=== PATIENT | female | born 1990 | race African-American/Black ===

== ENCOUNTER 2016-08-05 04:53 | Emergency (ER) | payer OTHER ==
[~2016-08-05] VITALS: Ht 172.7 cm; Wt 77.1 kg
[2016-08-05 04:58] VITALS: BP 124/88
[2016-08-05] MEDS ORDERED: CEPH500T PO (05:26)
--- NOTE | 2016-08-05 05:26 | PHYS DOC ---
Past Medical History Past Medical History: Seizure, Other Additional Past Medical Histor: PTSD Past Surgical History: Alcohol Use: Occasionally Drug Use: Marijuana, Other Social History Narrative: METH THIS TIME ONLY Adult General Chief Complaint Chief Complaint: UPPER EXTREMITY PAIN HPI HPI Patient is a 25 year old female who presents with wound to right arm. Patient reports on Friday she was with a friend and took a thumbtack, dipped it in methamphetamine, and poked it pain in her right AC. She presents now with a wound at the site, which she has been picking at. She reports pain at this site. She denies any fever. No other acute complaints. Review of Systems Review of Systems Constitutional: Denies fever or chills Respiratory: Denies cough or shortness of breath Cardiovascular: Denies chest pain GI: Denies abdominal pain, nausea, vomiting, or diarrhea Musculoskeletal: Wound to right arm. Neurologic: Denies headache, focal weakness or sensory changes Current Medications Current Medications Current Medications Medications (Trade) Dose Ordered Sig/Anne Start Time Stop Time Status Last Admin Dose Admin Cephalexin HCl (Keflex) 500 mg 1X ONCE 08/05/16 05:30 08/05/16 05:31 DC 08/05/16 05:32 500 MG Neomycin/ Polymyxin/ Bacitracin (Triple Antibiotic Ointment) 1 pkt 1X ONCE 08/05/16 05:30 08/05/16 05:31 DC 08/05/16 05:32 1 PKT Allergies Allergies Allergies Coded Allergies Type Severity Reaction Last Updated Verified No Known Drug Allergies 08/05/16 No Physical Exam Physical Exam Constitutional: Well developed, well nourished, no acute distress, non-toxic appearance HENT: Normocephalic, atraumatic, bilateral external ears normal Cardiovascular: Heart rate normal, regular rhythm, no murmur Lungs & Thorax: Bilateral breath sounds clear to auscultation Abdomen: Bowel sounds normal, soft, non-distended, no TTP Skin: Warm, dry, no erythema, no rash Extremities: 6mm hole at R AC with subcutaneous fat visible; minimal surrounding erythema, no warmth to touch; 2+ radial pulse, full motor function and sensation to light touch intact Neurologic: Alert and oriented X 3, no gross deficits noted Current Patient Data Vital Signs Vital Signs Date Time Temp Pulse Resp B/P Pulse Ox O2 Delivery O2 Flow Rate FiO2 08/05/16 04:58 98.2 88 18 100 Room Air 98.2 EKG EKG [] Radiology/Procedures Radiology/Procedures [] Course & Med Decision Making Course & Med Decision Making Pertinent Labs and Imaging studies reviewed. (See chart for details) Patient is 25-year-old female who presents with wound in right arm where she used to a tack to take meth. Does not appear grossly infected, however we will cover with antibiotics as patient is picking at wound and I'm concerned that it will become infected. Dose of Keflex ordered as well as Triple Antibiotic ointment. Instructed patient on care of the wound. Discharged with prescription for Keflex, instructions for follow-up, return precautions. Dragon Disclaimer Dragon Disclaimer This electronic medical record was generated, in whole or in part, using a voice recognition dictation system. Departure Departure Impression: Primary Impression: Open wound of right upper extremity Disposition: HOME, SELF-CARE Condition: STABLE Referrals: NO PCP (PCP) Patient Instructions: Methamphetamine Abuse, Complications, Open Wound, Forearm , [id number] Additional Instructions: Thank you for allowing us to provide care today in the Emergency Department. Take the provided medication as directed. Keep your wound clean and dry. Do not pick at it. You can apply antibiotic ointment to the area. Schedule a follow up appointment with your primary care doctor in the next several days to have your wound checked. Return promptly to the Emergency Department if you develop any new or concerning symptoms, such as fever. Scripts Cephalexin 500 Mg Tablet1 Tab PO QID #28 TAB Prov:MARGARET SHANNON MD 08/05/16 MARGARET SHANNON MD Aug 05, 2016 05:26
[2016-08-05] MEDS ORDERED: CEPHALEXIN 250 MG CAPSULE PO ONE (05:30)
[2016-08-05] MEDS ORDERED: NEOMY/BACITR/POLYMYXIN OINT PACKET. TP ONE (05:30)
== END 2016-08-05 05:45 | disposition home or self-care (01) ==
LOC: ER 04:53
DX: S41.101A Unspecified open wound of right upper arm, initial encounter (principal); F15.10 Other stimulant abuse, uncomplicated; F12.10 Cannabis abuse, uncomplicated; F43.10 Post-traumatic stress disorder, unspecified; W26.8XXA Contact with other sharp object(s), not elsewhere classified, initial encounter; Y93.89 Activity, other specified; Y92.89 Other specified places as the place of occurrence of the external cause; Y99.8 Other external cause status
CPT/HCPCS: 99283

== ENCOUNTER 2016-09-02 20:01 | Emergency (ER) | payer OTHER ==
[~2016-09-02] VITALS: Ht 172.7 cm; Wt 72.6 kg
[~2016-09-02 20:01] MED LIST: CEPH500T PO
[2016-09-02 20:44] VITALS: BP 106/69
--- NOTE | 2016-09-02 21:18 | PHYS DOC ---
Past Medical History Past Medical History: Seizure, Other Additional Past Medical Histor: PTSD Past Surgical History: Additional Information: 1/2 PACK/DAY Alcohol Use: Occasionally Additional Information: 1 "TALL BOY" DAILY Drug Use: Marijuana Adult General Chief Complaint Chief Complaint: RIB PAIN [facility] Patient is a 25 year old female presents emergency Department with complaint of atraumatic right sided chest wall pain that radiates to her right shoulder that began approximately 4 days ago. Patient states the pain is worse when she takes deep breaths and or rotates her trunk. She denies any fevers or chills. Patient was anxious seen at [facility] 2 days ago. She had an abdominal workup done including alcohol ultrasound that showed normal. She states that she did receive a gram of azithromycin today from her visit on Friday for positive chlamydia test. Patient states that she has been expression hot flashes but denies fevers. Patient states that in the past, she had a pocket of fluid drained off of the right long as she had subsequent antibiotic therapy. She states this was done at . She describes a PICC line in at the time. She denies any history of recurrent ear infections. Other than the azithromycin that she received here today, she denies antibiotic use, hospitalization or foreign travel within the past 90 days. Patient denies any history of coagulopathies, family history of coagulopathies. She denies any previous history of PEs or DVTs. Review of Systems Review of Systems Constitutional: Denies fever or chills [] Eyes: Denies change in visual acuity, redness, or eye pain [] HENT: Denies nasal congestion or sore throat [] Respiratory: Denies cough or shortness of breath [] Cardiovascular: No additional information not addressed in HPI [] GI: Denies abdominal pain, nausea, vomiting, bloody stools or diarrhea [] : Denies dysuria or hematuria [] Musculoskeletal: Denies back pain or joint pain [] Integument: Denies rash or skin lesions [] Neurologic: Denies headache, focal weakness or sensory changes [] Endocrine: Denies polyuria or polydipsia [] Allergies Allergies Allergies Coded Allergies Type Severity Reaction Last Updated Verified hydrocodone Adverse Reaction Mild Nausea 09/02/16 Yes Physical Exam Physical Exam Constitutional: Well developed, well nourished, no acute distress, non-toxic appearance. Patient is talking on her smartphone in the room. She is smiling. HENT: Normocephalic, atraumatic, bilateral external ears normal, oropharynx moist, no oral exudates, nose normal. Eyes: PERRLA, EOMI, conjunctiva normal, no discharge. [] Neck: Normal range of motion, no tenderness, supple, no stridor. Cardiovascular:Heart rate regular rhythm, no murmur Lungs & Thorax: There is no evidence of respiratory distress or respiratory fatigue. There is no posturing or sensory muscle use. Lungs are clear to auscultation bilaterally. Abdomen: Bowel sounds normal, soft, no tenderness, no masses, no pulsatile masses. [] Skin: Warm, dry, no erythema, no rash. [] Back: No tenderness, no CVA tenderness. [] Extremities: No tenderness, no cyanosis, no clubbing, ROM intact, no edema. [] Neurologic: Alert and oriented X 3, normal motor function, normal sensory function, no focal deficits noted. [] Psychologic: Affect normal, judgement normal, mood normal. [] Current Patient Data Vital Signs Vital Signs Date Time Temp Pulse Resp B/P Pulse Ox O2 Delivery O2 Flow Rate FiO2 09/02/16 20:44 98.7 87 18 100 Room Air 98.7 Lab Values Laboratory Tests Test 09/02/16 20:41 POC Urine HCG, Qualitative Hcg negative (Negative) EKG EKG [] Radiology/Procedures Radiology/Procedures PA and lateral chest x-ray are performed with adequate technique. It is normal. Course & Med Decision Making Course & Med Decision Making Pertinent Labs and Imaging studies reviewed. (See chart for details) [] Dragon Disclaimer Dragon Disclaimer This electronic medical record was generated, in whole or in part, using a voice recognition dictation system. Departure Departure Impression: Primary Impression: Pleurisy Disposition: HOME, SELF-CARE Condition: GOOD Referrals: NO PCP (PCP) Patient Instructions: Pleurisy, [id number] Additional Instructions: 1. Chest x-ray here today is normal. There is no evidence of pneumonia, collapsed lung or fluid in your chest. 2. Take the medications prescribed. 3. Review the discharge instructions provided for self-care and reasons to return to the emergency department. 4. Follow-up with a primary care doctor within the next 5-7 days. Scripts Promethazine Hcl/Codeine (Promethazine-Codeine Syrup)118 Ml Syrup10 Ml PO QHS cough and chest wall. #240 ML Prov:DAVY CUELLAR 09/02/16 DAVY CUELLAR Sep 02, 2016 21:18
[2016-09-02] MEDS ORDERED: PROM118S2 PO (21:50)
--- NOTE | 2016-09-03 08:04 | RAD ---
Chest, 2 views, 09/02/2016: History: Rib and right shoulder pain The heart size and pulmonary vascularity are normal. No pulmonary infiltrates are seen. There is no evidence of pleural fluid. IMPRESSION: No acute cardiopulmonary abnormality is detected.
== END 2016-09-02 22:02 | disposition home or self-care (01) ==
LOC: ER 20:01
DX: R09.1 Pleurisy (principal); M25.511 Pain in right shoulder; F12.10 Cannabis abuse, uncomplicated; F43.10 Post-traumatic stress disorder, unspecified; Z88.5 Allergy status to narcotic agent
CPT/HCPCS: 71020; 81025; 99284

== ENCOUNTER 2016-10-30 21:57 | Inpatient (IN) | payer OTHER ==
[~2016-10-30] VITALS: Ht 172.7 cm; Wt 70.3 kg
[~2016-10-30 21:57] MED LIST changes: +PROM118S2 PO
--- NOTE | 2016-10-30 22:09 | PHYS DOC ---
Past Medical History Past Medical History: Seizure, Other Additional Past Medical Histor: PTSD Past Surgical History: Smoking: Cigarettes Alcohol Use: Occasionally Drug Use: Marijuana Adult General Chief Complaint Chief Complaint: SEIZURE HPI HPI Patient is a 25 year old female who presents with recurrent seizures. She has been followed by [facility] for her seizures "that are due to my drinking and anxiety." She states she had a seizure last , Fri and Sat. She donated plasma today "so I had a few beers so that I could donate again faster." She last drank this evening. When EMS arrived she was having a generalized tonic clonic seizure. They dosed here with IM versed and she arrived alert and oriented with no seizure activity upon presentation. Her LMP is today; she has had some loose stool but otherwise no acute illness. Review of Systems Review of Systems Constitutional: Denies fever or chills Eyes: Denies change in visual acuity, redness, or eye pain HENT: Denies nasal congestion or sore throat Respiratory: Denies cough or shortness of breath Cardiovascular: No chest pain GI: Denies abdominal pain, nausea, vomiting, bloody stools. Some diarrhea : Denies dysuria or hematuria Musculoskeletal: Denies back pain or joint pain Integument: Denies rash or skin lesions Neurologic: Denies headache, focal weakness or sensory changes. Seizure activity Current Medications Current Medications Current Medications Medications (Trade) Dose Ordered Sig/Anne Start Time Stop Time Status Last Admin Dose Admin Acetaminophen (Tylenol) 650 mg PRN Q4HRS PRN 10/31/16 00:30 11/01/16 00:29 Lorazepam (Ativan) 2 mg PRN Q4HRS PRN 10/31/16 00:30 Multivitamins 10 ml/Thiamine HCl 100 mg/Folic Acid 1 mg/Sodium Chloride 1,011.2 ml @ 100 mls/ hr DAILY 10/31/16 01:00 11/05/16 00:59 10/31/16 00:39 100 MLS/HR Ondansetron HCl (Zofran) 4 mg PRN Q8HRS PRN 10/31/16 00:30 11/01/16 00:29 Sodium Chloride 1,000 ml @ 1,000 mls/hr 1X ONCE 10/30/16 23:00 10/30/16 23:59 DC 10/30/16 22:40 1,000 MLS/HR Sodium Chloride (Normal Saline Flush) 10 ml QSHIFT PRN 10/30/16 22:15 Allergies Allergies Allergies Coded Allergies Type Severity Reaction Last Updated Verified hydrocodone Adverse Reaction Mild Nausea 09/02/16 Yes Physical Exam Physical Exam Constitutional: Well developed, well nourished, no acute distress, non-toxic appearance. HENT: Normocephalic, atraumatic, bilateral external ears normal, oropharynx moist, no oral exudates, nose normal. Eyes: PERRLA, EOMI, conjunctiva normal, no discharge. Neck: Normal range of motion, no tenderness, supple, no stridor. Cardiovascular:Heart rate regular rhythm, no murmur Lungs & Thorax: Bilateral breath sounds clear to auscultation Abdomen: Bowel sounds normal, soft, no tenderness, no masses, no pulsatile masses. Skin: Warm, dry, no erythema, no rash. Back: No tenderness, no CVA tenderness. Extremities: No tenderness, no cyanosis, no clubbing, ROM intact, no edema. Neurologic: Alert and oriented X 3, normal motor function, normal sensory function, no focal deficits noted. Psychologic: Affect normal, judgement normal, mood normal. Current Patient Data Vital Signs Vital Signs Date Time Temp Pulse Resp B/P (MAP) Pulse Ox O2 Delivery O2 Flow Rate FiO2 10/31/16 00:52 72 18 92/58 (69) 100 Room Air 10/30/16 22:07 98.6 98.6 Lab Values Laboratory Tests Test 10/30/16 21:47 10/30/16 22:15 10/30/16 22:30 POC Urine HCG, Qualitative Hcg negative (Negative) White Blood Count 6.1 x10^3/uL (4.0-11.0) Red Blood Count 4.49 x10^6/uL (3.50-5.40) Hemoglobin 12.9 g/dL (12.0-15.5) Hematocrit 39.5 % (36.0-47.0) Mean Corpuscular Volume 88 fL (79-100) Mean Corpuscular Hemoglobin 29 pg (25-35) Mean Corpuscular Hemoglobin Concent 33 g/dL (31-37) Red Cell Distribution Width 16.4 % (11.5-14.5) H Platelet Count 223 x10^3/uL (140-400) Neutrophils (%) (Auto) 33 % (31-73) Lymphocytes (%) (Auto) 52 % (24-48) H Monocytes (%) (Auto) 7 % (0-9) Eosinophils (%) (Auto) 6 % (0-3) H Basophils (%) (Auto) 1 % (0-3) Neutrophils # (Auto) 2.0 x10^3uL (1.8-7.7) Lymphocytes # (Auto) 3.2 x10^3/uL (1.0-4.8) Monocytes # (Auto) 0.5 x10^3/uL (0.0-1.1) Eosinophils # (Auto) 0.3 x10^3/uL (0.0-0.7) Basophils # (Auto) 0.1 x10^3/uL (0.0-0.2) Sodium Level 142 mmol/L (136-145) Potassium Level 3.5 mmol/L (3.5-5.1) Chloride Level 107 mmol/L (98-107) Carbon Dioxide Level 23 mmol/L (21-32) Anion Gap 12 (6-14) Blood Urea Nitrogen 7 mg/dL (7-20) Creatinine 0.9 mg/dL (0.6-1.0) Estimated GFR (Cockcroft-Gault) 91.6 Glucose Level 69 mg/dL (70-99) L Calcium Level 8.5 mg/dL (8.5-10.1) Total Bilirubin 0.3 mg/dL (0.2-1.0) Direct Bilirubin 0.1 mg/dL (0.0-0.2) Aspartate Amino Transferase (AST) 34 U/L (15-37) Alanine Aminotransferase (ALT) 42 U/L (14-59) Alkaline Phosphatase 47 U/L (46-116) Total Protein 6.7 g/dL (6.4-8.2) Albumin 3.5 g/dL (3.4-5.0) Ethyl Alcohol Level 201 mg/dL (0-10) H Urine Opiates Screen Neg (NEG) Urine Methadone Screen Neg (NEG) Urine Barbiturates Neg (NEG) Urine Phencyclidine Screen Neg (NEG) Urine Amphetamine/Methamphetamine Neg (NEG) Urine Benzodiazepines Screen Pos (NEG) Urine Cocaine Screen Pos (NEG) Urine Cannabinoids Screen Pos (NEG) Urine Ethyl Alcohol Pos (NEG) Laboratory Tests 10/30/16 22:15 Laboratory Tests 10/30/16 22:15 EKG EKG EKG by my interpretation: NSR, rate 76. No acute ST elevation. Non specific ST changes Radiology/Procedures Radiology/Procedures CXR: my interpretation shows normal lung miner; normal cardiac silhouette. [facility] [address] [place] [address] IMAGING REPORT Signed PATIENT: JEFRY GORDON ACCOUNT: [id number] : 1990 LOCATION: ER AGE: 25 SEX: F EXAM STATUS: REG ER ORD. PHYSICIAN: ELISA FINE MD REASON: seizure PROCEDURE: CT HEAD WO CONTRAST CT head without contrast TECHNIQUE: [address] imaging skull base to vertex. HISTORY: Seizure. FINDINGS: No intracranial hemorrhage, mass, hydrocephalus, extra-axial fluid collections or infarction. No acute ischemic change. Orbits, mastoids, paranasal sinuses and bones are remarkable. IMPRESSION: No acute intracranial CT abnormality. Exposure: One or more of the following individualized dose reduction techniques were utilized for this examination: 1. Automated exposure control 2. Adjustment of the mA and/or kV according to patient size 3. Use of iterative reconstruction technique Electronically signed by: Adolph Henderson MD (10/30/2016 11:13 PM) DICTATED and SIGNED BY: ADOLPH HENDERSON MD DATE: 10/30/16 [id number] CC: ELISA FINE MD; NO PCP ~ Course & Med Decision Making Course & Med Decision Making Pertinent Labs and Imaging studies reviewed. (See chart for details) evaluated patient upon arrival. She is not on seizure medication per the patient. She claims it was never prescribed. She does drink heavily and is under the influence tonight. She is however alert and oriented and able to answer questions appropriately. 2225 PM: she had a seizure here. Ativan IV dosed. 2320 pm: Lab returned. Ethanol 201 and glucose 69. UCG negative. UDS pos for THC. CT head negative. No further seizure activity here. Contacted neurology-Dr Joe. Feels seizures are due to ethanol intox. presently. Will admit; alcohol detox protocol with ativan prn seizures. No keppra. Will admit to Dr Currie; hospitalist to [facility]. added thiamine and banana bag. ativan prn Maria Del Carmen Disclaimer Dragon Disclaimer This electronic medical record was generated, in whole or in part, using a voice recognition dictation system. Departure Departure Impression: Primary Impression: Recurrent seizures Additional Impression: Alcohol intoxication Disposition: ADMITTED INPATIENT Admitting Physician: Justice Currie Condition: STABLE Referrals: NO PCP (PCP) Problem Qualifiers ELISA FINE MD October 30, 2016 22:09
[2016-10-30] MEDS ORDERED: 0.9 % SODIUM CHLORIDE 10 ML DISP.SYRIN. IV PRN (22:15)
[2016-10-30 22:28] LABS: BASO # 0.1 x10^3/uL (0.0-0.2); BASO % 1 % (0-3); EOS % 6 % (0-3); HEMATOCRIT 39.5 % (36.0-47.0); HEMOGLOBIN 12.9 g/dL (12.0-15.5); LYMPH # 3.2 x10^3/uL (1.0-4.8); LYMPH % 52 % (24-48); MEAN CORPUSCULAR HEMOGLOBIN 29 pg (25-35); MEAN CORPUSCULAR HGB CONC 33 g/dL (31-37); MEAN CORPUSCULAR VOLUME 88 fL (79-100); MONO % 7 % (0-9); NEUT % 33 % (31-73); PLATELET COUNT 223 x10^3/uL (140-400); RED BLOOD COUNT 4.49 x10^6/uL (3.50-5.40); RED CELL DISTRIBUTION WIDTH 16.4 % (11.5-14.5); WHITE BLOOD COUNT 6.1 x10^3/uL (4.0-11.0)
[2016-10-30 22:40] LABS: CALCIUM 8.5 mg/dL (8.5-10.1); CREATININE 0.9 mg/dL (0.6-1.0); GFR 91.6; POTASSIUM 3.5 mmol/L (3.5-5.1)
[2016-10-30 22:43] LABS: ALBUMIN 3.5 g/dL (3.4-5.0); DIRECT BILIRUBIN 0.1 mg/dL (0.0-0.2); TOTAL BILIRUBIN 0.3 mg/dL (0.2-1.0); TOTAL PROTEIN 6.7 g/dL (6.4-8.2)
[2016-10-30 22:57] LABS: BARBITURATES NEG (NEG); BENZODIAZEPINES POS (NEG); CANNABINOIDS POS (NEG); COCAINE POS (NEG); METHADONE NEG (NEG); OPIATES NEG (NEG); PHENCYCLIDINE NEG (NEG)
[2016-10-30] MEDS ORDERED: IV NORMAL SALINE 1000ML BAG 1,000 ML IV ONE (23:00)
--- NOTE | 2016-10-30 23:16 | RAD ---
CT head without contrast TECHNIQUE: [address] imaging skull base to vertex. HISTORY: Seizure. FINDINGS: No intracranial hemorrhage, mass, hydrocephalus, extra-axial fluid collections or infarction. No acute ischemic change. Orbits, mastoids, paranasal sinuses and bones are remarkable. IMPRESSION: No acute intracranial CT abnormality. Exposure: One or more of the following individualized dose reduction techniques were utilized for this examination: 1. Automated exposure control 2. Adjustment of the mA and/or kV according to patient size 3. Use of iterative reconstruction technique Electronically signed by: Rizwan Henderson MD (10/30/2016 11:13 PM)
[2016-10-31] MEDS ORDERED: ACETAMINOPHEN 325 MG TABLET. PO PRN ×2 (00:30→11:30)
[2016-10-31] MEDS ORDERED: ONDANSETRON PF 4 MG/2 ML VIAL. IV PRN ×2 (00:30→11:30)
[2016-10-31] MEDS: MULTIVIT INFUSN,ADULT 4,VIT K 10 ML, THIAMINE 100 MG, FOLIC ACID 1 MG in IV NORMAL SALI... IV SCH (00:39)
[2016-10-31] MEDS: LORazepam 1 MG TABLET PO SCH ×4 (00:53→17:32)
[2016-10-31 02:48] VITALS: BP 96/63
[2016-10-31 07:00] VITALS: BP 114/77
--- NOTE | 2016-10-31 07:43 | EKG ---
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
[2016-10-31 11:00] VITALS: BP 120/74
[2016-10-31] MEDS ORDERED: MORPHINE SULFATE 2 MG/ML DISP.SYRIN. IV PRN (11:30)
[2016-10-31] MEDS ORDERED: DOCUSATE SODIUM 100 MG CAPSULE. PO PRN (11:30)
[2016-10-31] MEDS ORDERED: hydrALAZINE 20 MG/ML VIAL. IVP PRN (11:30)
[2016-10-31] MEDS ORDERED: traMADol 50 MG TABLET PO PRN (11:30)
[2016-10-31] MEDS ORDERED: guaiFENesin/CODEINE 100mg/10mg 5 ML LIQUID PO PRN (11:30)
--- NOTE | 2016-10-31 13:39 | PDOC1 ---
History and Physical Date of Admission Date of Admission 10/31/16 Identification/Chief Complaint Chief Complaint seizure Problems: Source Source: Chart review, Patient History of Present Illness History of Present Illness HPI Patient is a 25 year old female who presents with recurrent seizures for 2 days. She has been followed by [facility] for her seizures before, as per pt, they did 24h vedio EEG and neg for epilepsy. Pt thinks "that are due to my drinking and anxiety" since she thought she still had seizure when she was off ETOH for 1 year. However, she only saw psych once and was not following with anyone or takes any meds for psych or seizure. as per ERP, When EMS arrived she was having a generalized tonic clonic seizure. They dosed here with IM versed and she arrived alert and oriented with no seizure activity upon presentation. Her LMP is today; she has had some loose stool but otherwise no acute illness. as per nurse, pt had 4 times seizure today, with only 1min confusion post seizure. denies fever, chills, chest pain, N/V. + mild cough. smoker Past Medical History Past Medical History seizure Past Surgical History Past Surgical History: Family History Family History: Hypertension Social History Smoke: <1 pack per day ALCOHOL: heavy Drugs: Cocaine, Marijuana Current Problem List Problem List Problems Medical Problems: (1) Alcohol intoxication Status: Acute (2) Recurrent seizures Status: Acute Current Medications Current Medications Current Medications Medications (Trade) Dose Ordered Sig/Anne Start Time Stop Time Status Last Admin Dose Admin Acetaminophen (Tylenol) 650 mg PRN Q6HRS PRN 10/31/16 11:30 Docusate Sodium (Colace) 100 mg PRN DAILY PRN 10/31/16 11:30 Guaifenesin/ Codeine Phosphate (Robitussin Ac) 5 ml PRN Q6HRS PRN 10/31/16 11:30 Hydralazine HCl (Apresoline) 10 mg PRN Q4HRS PRN 10/31/16 11:30 Lorazepam (Ativan) 2 mg PRN Q4HRS PRN 10/31/16 00:30 10/31/16 10:11 2 MG Morphine Sulfate 2 mg PRN Q2HR PRN 10/31/16 11:30 Multivitamins 10 ml/Thiamine HCl 100 mg/Folic Acid 1 mg/Sodium Chloride 1,011.2 ml @ 100 mls/ hr DAILY 10/31/16 01:00 11/05/16 00:59 10/31/16 00:39 100 MLS/HR Ondansetron HCl (Zofran) 4 mg PRN Q6HRS PRN 10/31/16 11:30 Promethazine HCl/ Codeine (Phenergan With Codeine) 10 ml QHS 10/31/16 21:00 Sodium Chloride 1,000 ml @ 1,000 mls/hr 1X ONCE 10/30/16 23:00 10/30/16 23:59 DC 10/30/16 22:40 1,000 MLS/HR Sodium Chloride (Normal Saline Flush) 10 ml QSHIFT PRN 10/30/16 22:15 Thiamine HCl 100 mg DAILY 11/05/16 09:00 11/05/16 09:01 Tramadol HCl (Ultram) 50 mg PRN Q6HRS PRN 10/31/16 11:30 Allergies Allergies Allergies Coded Allergies Type Severity Reaction Last Updated Verified hydrocodone Adverse Reaction Mild Nausea 09/02/16 Yes ROS Review of System CONSTITUTIONAL: No fever or chills EYES: No recent changes SKIN: No rash or itching CARDIOVASCULAR: No chest pain, syncope, palpitations, or edema RESPIRATORY: No SOB or cough GASTROINTESTINAL: No nausea, vomiting or abdominal pain NEUROLOGICAL: No headaches or weakness ENDOCRINE: No cold or heat intolerance GENITOURINARY: No urgency or frequency of urination MUSCULOSKELETAL: No back pain or joint pain LYMPHATICS: No enlarged lymph nodes PSYCHIATRIC: No anxiety or depression Physical Exam Physical Exam GEN.: No apparent distress. Alert and oriented. HEENT: Head is normocephalic, atraumatic NECK: Supple. LUNGS: Clear to auscultation. HEART: RRR, S1, S2 present. Peripheral pulses intact ABDOMEN: Soft, nontender. Positive bowel sounds. EXTREMITIES: Without any cyanosis. NEUROLOGIC: Normal speech, normal tone PSYCHIATRIC: Normal affect, normal mood. SKIN: No ulcerations Vitals Vitals Vital Signs Date Time Temp Pulse Resp B/P (MAP) Pulse Ox O2 Delivery O2 Flow Rate FiO2 10/31/16 11:00 97.6 88 18 120/74 (89) 96 Room Air 97.6 Labs Labs Laboratory Tests Test 10/30/16 21:47 10/30/16 22:15 10/30/16 22:30 Bedside Urine HCG, Qualitative Hcg negative (Negative) White Blood Count 6.1 x10^3/uL (4.0-11.0) Red Blood Count 4.49 x10^6/uL (3.50-5.40) Hemoglobin 12.9 g/dL (12.0-15.5) Hematocrit 39.5 % (36.0-47.0) Mean Corpuscular Volume 88 fL (79-100) Mean Corpuscular Hemoglobin 29 pg (25-35) Mean Corpuscular Hemoglobin Concent 33 g/dL (31-37) Red Cell Distribution Width 16.4 % (11.5-14.5) Platelet Count 223 x10^3/uL (140-400) Neutrophils (%) (Auto) 33 % (31-73) Lymphocytes (%) (Auto) 52 % (24-48) Monocytes (%) (Auto) 7 % (0-9) Eosinophils (%) (Auto) 6 % (0-3) Basophils (%) (Auto) 1 % (0-3) Neutrophils # (Auto) 2.0 x10^3uL (1.8-7.7) Lymphocytes # (Auto) 3.2 x10^3/uL (1.0-4.8) Monocytes # (Auto) 0.5 x10^3/uL (0.0-1.1) Eosinophils # (Auto) 0.3 x10^3/uL (0.0-0.7) Basophils # (Auto) 0.1 x10^3/uL (0.0-0.2) Sodium Level 142 mmol/L (136-145) Potassium Level 3.5 mmol/L (3.5-5.1) Chloride Level 107 mmol/L (98-107) Carbon Dioxide Level 23 mmol/L (21-32) Anion Gap 12 (6-14) Blood Urea Nitrogen 7 mg/dL (7-20) Creatinine 0.9 mg/dL (0.6-1.0) Estimated GFR (Cockcroft-Gault) 91.6 Glucose Level 69 mg/dL (70-99) Calcium Level 8.5 mg/dL (8.5-10.1) Total Bilirubin 0.3 mg/dL (0.2-1.0) Direct Bilirubin 0.1 mg/dL (0.0-0.2) Aspartate Amino Transf (AST/SGOT) 34 U/L (15-37) Alanine Aminotransferase (ALT/SGPT) 42 U/L (14-59) Alkaline Phosphatase 47 U/L (46-116) Total Protein 6.7 g/dL (6.4-8.2) Albumin 3.5 g/dL (3.4-5.0) Ethyl Alcohol Level 201 mg/dL (0-10) Urine Opiates Screen Neg (NEG) Urine Methadone Screen Neg (NEG) Urine Barbiturates Neg (NEG) Urine Phencyclidine Screen Neg (NEG) Urine Amphetamine/Methamphetamine Neg (NEG) Urine Benzodiazepines Screen Pos (NEG) Urine Cocaine Screen Pos (NEG) Urine Cannabinoids Screen Pos (NEG) Urine Ethyl Alcohol Pos (NEG) Laboratory Tests Test 10/30/16 21:47 10/30/16 22:15 10/30/16 22:30 Bedside Urine HCG, Qualitative Hcg negative (Negative) White Blood Count 6.1 x10^3/uL (4.0-11.0) Red Blood Count 4.49 x10^6/uL (3.50-5.40) Hemoglobin 12.9 g/dL (12.0-15.5) Hematocrit 39.5 % (36.0-47.0) Mean Corpuscular Volume 88 fL (79-100) Mean Corpuscular Hemoglobin 29 pg (25-35) Mean Corpuscular Hemoglobin Concent 33 g/dL (31-37) Red Cell Distribution Width 16.4 % (11.5-14.5) Platelet Count 223 x10^3/uL (140-400) Neutrophils (%) (Auto) 33 % (31-73) Lymphocytes (%) (Auto) 52 % (24-48) Monocytes (%) (Auto) 7 % (0-9) Eosinophils (%) (Auto) 6 % (0-3) Basophils (%) (Auto) 1 % (0-3) Neutrophils # (Auto) 2.0 x10^3uL (1.8-7.7) Lymphocytes # (Auto) 3.2 x10^3/uL (1.0-4.8) Monocytes # (Auto) 0.5 x10^3/uL (0.0-1.1) Eosinophils # (Auto) 0.3 x10^3/uL (0.0-0.7) Basophils # (Auto) 0.1 x10^3/uL (0.0-0.2) Sodium Level 142 mmol/L (136-145) Potassium Level 3.5 mmol/L (3.5-5.1) Chloride Level 107 mmol/L (98-107) Carbon Dioxide Level 23 mmol/L (21-32) Anion Gap 12 (6-14) Blood Urea Nitrogen 7 mg/dL (7-20) Creatinine 0.9 mg/dL (0.6-1.0) Estimated GFR (Cockcroft-Gault) 91.6 Glucose Level 69 mg/dL (70-99) Calcium Level 8.5 mg/dL (8.5-10.1) Total Bilirubin 0.3 mg/dL (0.2-1.0) Direct Bilirubin 0.1 mg/dL (0.0-0.2) Aspartate Amino Transf (AST/SGOT) 34 U/L (15-37) Alanine Aminotransferase (ALT/SGPT) 42 U/L (14-59) Alkaline Phosphatase 47 U/L (46-116) Total Protein 6.7 g/dL (6.4-8.2) Albumin 3.5 g/dL (3.4-5.0) Ethyl Alcohol Level 201 mg/dL (0-10) Urine Opiates Screen Neg (NEG) Urine Methadone Screen Neg (NEG) Urine Barbiturates Neg (NEG) Urine Phencyclidine Screen Neg (NEG) Urine Amphetamine/Methamphetamine Neg (NEG) Urine Benzodiazepines Screen Pos (NEG) Urine Cocaine Screen Pos (NEG) Urine Cannabinoids Screen Pos (NEG) Urine Ethyl Alcohol Pos (NEG) VTE Prophylaxis Ordered VTE Prophylaxis Devices: Yes VTE Pharmacological Prophylaxi: Yes Assessment/Plan Assessment/Plan seizure, 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
--- NOTE | 2016-10-31 14:36 | PDOC2 ---
NEUROLOGY CONSULT Date of Admission Date of Admission DATE: 10/31/16 TIME: 13:52 Reason for Consult Reason for Consult: IMPRESSION: Seizures, substance and drug related. Acute toxic encephalopathy. Alcohol intoxication, alcohol level 201 on 10/30/16. Cocaine positive. Cannabinoids positive. Benzo positive. Drinking. Smoking. Plasma donating. RECOMMENDATIONS/PLAN: Alcohol IV detoxication protocol. Vit B1 100 mg daily. EEG Lab: see orders. No AED is recommended at the present time for alcohol and drug induced seizures. Patient education for substances and drugs abstinence. No driving for 6 months anytime after a seizure and she understood. Please consult Web Production Manager. See psychiatry for alcohol and drug abuse. HISTORY OF THE PRESENT ILLNESS: 25-y-old AA female was brought to the ER of [facility] after having seizures. She had seizures on 10/25, 10/26 and 10/27. She is a jeannette donating plasma and she had plasma donation on 10/30. After plasma donation, she drank 2 tall container of beer estimated 24 Oz and had 2 seizures afterwards. She had seizures in the past and was evaluated in [facility] and she said she was told her seizures were alcohol seizures and no AEDs were needed. She was found positivities for cocaine , cannabinoids, benzo alone with alcohol intoxication this time. PAST MEDICAL HISTORY: Please see above. PAST SURGERY HISTORY: . ALLERGY: Unknown MEDICATIONS: Refer to [facility] FAMILY HISTORY: No information is available. SOCIAL HISTORY: Lives at home with her children. She smokes 1/2 to 1 pack of cigarettes a day for 11 years. She drinks beers with uncertain amount multiple times a week for about 11 years. She uses drugs as above for years she did not disclose. REVIEW OF SYSTEMS: Constitutional: No malnutrition or cachexia. Head: No traumatic brain or head injury. Skin: No edema, or rash. Ear: No infection, tinnitus. Eyes: No vision loss or color blindness. Nose: No bleeding or purulent discharges. Hearing: No hearing decrease. Neck: No injury. Breast: No history of cancer, masses,or discharges. Cardiac: No IN, arrhythmia. Pulmonary: No pneumonia. GI: No GI ulcer, GI bleeding. Urinary/genital: No dysuria, incontinence, urinary retention. Endocrinologic: No cousin face, craniofacial dysmorphism, polydactyly. Skeletomuscular: No muscular atrophy, deformity. Neurological: see HP. Psychiatric: Denies drug use/abuse. Otherwise, not [id number] review of systems. PHYSICAL EXAMINATION: General appearance is in acute distress. HEENT: Normocephalic and nontraumatic. Eyes, nose, ears, and throat are unremarkable. Neck is supple. No lymphadenopathy. No bruits are heard over the carotid artery. No crepitus. Cardiovascular: S1, S2, regular rate and rhythm. Pulmonary: Clear to auscultation bilaterally. Abdomen: Bowel sounds are positive. Extremities: No rash, lesions, or edema. No restriction of range of motion NEUROLOGICAL EXAMINATION: Sleepiness but arousable. Not oriented to time, but knows place and person. PERRL. EOMI. CN: no focal findings. Muscle tone: within normal. Muscle strength: 5 DTR: 2 Plantar reflex: Flexor response bilaterally Gait: not examined in bed. Sensory exam: no abnormal findings. Not able to access cerebellar signs due to not follow commands. Current Medications Current Medications Current Medications Sodium Chloride (Normal Saline Flush) 10 ml QSHIFT PRN IV AFTER MEDS AND BLOOD DRAWS; Start 10/30/16 at 22:15 Lorazepam (Ativan) 2 mg STK-MED ONCE .ROUTE ; Start 10/30/16 at 22:24; Stop at 22:25; Status DC Lorazepam (Ativan) 1 mg 1X ONCE IV Last administered on 10/30/16 22:28; Start 10/30/16 at 23:00; Stop 10/30/16 at 23:01; Status DC Sodium Chloride 1,000 ml @ 1,000 mls/hr 1X ONCE IV Last administered on 22:40; Start 10/30/16 at 23:00; Stop 10/30/16 at 23:59; Status DC Ondansetron HCl (Zofran) 4 mg PRN Q8HRS PRN IV NAUSEA/VOMITING; Start 10/31/16 at 00:30; Stop 11/01/16 at 00:29 Acetaminophen (Tylenol) 650 mg PRN Q4HRS PRN PO FEVER; Start 10/31/16 at 00:30 ; Stop 11/01/16 at 00:29 Multivitamins 10 ml/Thiamine HCl 100 mg/Folic Acid 1 mg/Sodium Chloride 1,011.2 ml @ 100 mls/ hr DAILY IV Last administered on 10/31/16 00:39; Start at 01:00; Stop 11/05/16 at 00:59 Thiamine HCl 100 mg DAILY IM ; Start 11/05/16 at 09:00; Stop 11/05/16 at 09:01 Lorazepam (Ativan) 2 mg Q6HRS PO Last administered on 10/31/16 06:32; Start at 00:30; Stop 11/01/16 at 06:01 Lorazepam (Ativan) 2 mg PRN Q4HRS PRN IV WITHDRAWAL IRRITABILITY Last administered on 10/31/16 10:11; Start 10/31/16 at 00:30 Acetaminophen (Tylenol) 650 mg PRN Q6HRS PRN PO FEVER; Start 10/31/16 at 11:30 Ondansetron HCl (Zofran) 4 mg PRN Q6HRS PRN IV NAUSEA/VOMITING; Start 10/31/16 at 11:30 Morphine Sulfate 2 mg PRN Q2HR PRN IV PAIN; Start 10/31/16 at 11:30 Tramadol HCl (Ultram) 50 mg PRN Q6HRS PRN PO PAIN; Start 10/31/16 at 11:30 Hydralazine HCl (Apresoline) 10 mg PRN Q4HRS PRN IVP ELEVATED BP, SEE COMMENTS ; Start 10/31/16 at 11:30 Docusate Sodium (Colace) 100 mg PRN DAILY PRN PO CONSTIPATION; Start 10/31/16 at 11:30 Guaifenesin/ Codeine Phosphate (Robitussin Ac) 5 ml PRN Q6HRS PRN PO COUGH; Start 10/31/16 at 11:30 Promethazine HCl/ Codeine (Phenergan With Codeine) 10 ml QHS PO ; Start at 21:00 Enoxaparin Sodium (Lovenox 40mg Syringe) 40 mg DAILY16 SQ ; Start 10/31/16 at 16 :00 Active Scripts Active Promethazine-Codeine Syrup (Promethazine Hcl/Codeine) 118 Ml Syrup 10 Ml PO QHS Cephalexin 500 Mg Tablet 1 Tab PO QID Allergies Allergies: Coded Allergies: hydrocodone (Verified Adverse Reaction, Mild, Nausea, 09/02/16) Vitals VITALS Vital Signs Date Time Temp Pulse Resp B/P (MAP) Pulse Ox O2 Delivery O2 Flow Rate FiO2 10/31/16 11:00 97.6 88 18 120/74 (89) 96 Room Air 97.6 Labs Labs Laboratory Tests Test 10/30/16 21:47 10/30/16 22:15 10/30/16 22:30 Bedside Urine HCG, Qualitative Hcg negative (Negative) White Blood Count 6.1 x10^3/uL (4.0-11.0) Red Blood Count 4.49 x10^6/uL (3.50-5.40) Hemoglobin 12.9 g/dL (12.0-15.5) Hematocrit 39.5 % (36.0-47.0) Mean Corpuscular Volume 88 fL (79-100) Mean Corpuscular Hemoglobin 29 pg (25-35) Mean Corpuscular Hemoglobin Concent 33 g/dL (31-37) Red Cell Distribution Width 16.4 % (11.5-14.5) Platelet Count 223 x10^3/uL (140-400) Neutrophils (%) (Auto) 33 % (31-73) Lymphocytes (%) (Auto) 52 % (24-48) Monocytes (%) (Auto) 7 % (0-9) Eosinophils (%) (Auto) 6 % (0-3) Basophils (%) (Auto) 1 % (0-3) Neutrophils # (Auto) 2.0 x10^3uL (1.8-7.7) Lymphocytes # (Auto) 3.2 x10^3/uL (1.0-4.8) Monocytes # (Auto) 0.5 x10^3/uL (0.0-1.1) Eosinophils # (Auto) 0.3 x10^3/uL (0.0-0.7) Basophils # (Auto) 0.1 x10^3/uL (0.0-0.2) Sodium Level 142 mmol/L (136-145) Potassium Level 3.5 mmol/L (3.5-5.1) Chloride Level 107 mmol/L (98-107) Carbon Dioxide Level 23 mmol/L (21-32) Anion Gap 12 (6-14) Blood Urea Nitrogen 7 mg/dL (7-20) Creatinine 0.9 mg/dL (0.6-1.0) Estimated GFR (Cockcroft-Gault) 91.6 Glucose Level 69 mg/dL (70-99) Calcium Level 8.5 mg/dL (8.5-10.1) Total Bilirubin 0.3 mg/dL (0.2-1.0) Direct Bilirubin 0.1 mg/dL (0.0-0.2) Aspartate Amino Transf (AST/SGOT) 34 U/L (15-37) Alanine Aminotransferase (ALT/SGPT) 42 U/L (14-59) Alkaline Phosphatase 47 U/L (46-116) Total Protein 6.7 g/dL (6.4-8.2) Albumin 3.5 g/dL (3.4-5.0) Ethyl Alcohol Level 201 mg/dL (0-10) Urine Opiates Screen Neg (NEG) Urine Methadone Screen Neg (NEG) Urine Barbiturates Neg (NEG) Urine Phencyclidine Screen Neg (NEG) Urine Amphetamine/Methamphetamine Neg (NEG) Urine Benzodiazepines Screen Pos (NEG) Urine Cocaine Screen Pos (NEG) Urine Cannabinoids Screen Pos (NEG) Urine Ethyl Alcohol Pos (NEG) Laboratory Tests Test 10/30/16 21:47 10/30/16 22:15 10/30/16 22:30 Bedside Urine HCG, Qualitative Hcg negative (Negative) White Blood Count 6.1 x10^3/uL (4.0-11.0) Red Blood Count 4.49 x10^6/uL (3.50-5.40) Hemoglobin 12.9 g/dL (12.0-15.5) Hematocrit 39.5 % (36.0-47.0) Mean Corpuscular Volume 88 fL (79-100) Mean Corpuscular Hemoglobin 29 pg (25-35) Mean Corpuscular Hemoglobin Concent 33 g/dL (31-37) Red Cell Distribution Width 16.4 % (11.5-14.5) Platelet Count 223 x10^3/uL (140-400) Neutrophils (%) (Auto) 33 % (31-73) Lymphocytes (%) (Auto) 52 % (24-48) Monocytes (%) (Auto) 7 % (0-9) Eosinophils (%) (Auto) 6 % (0-3) Basophils (%) (Auto) 1 % (0-3) Neutrophils # (Auto) 2.0 x10^3uL (1.8-7.7) Lymphocytes # (Auto) 3.2 x10^3/uL (1.0-4.8) Monocytes # (Auto) 0.5 x10^3/uL (0.0-1.1) Eosinophils # (Auto) 0.3 x10^3/uL (0.0-0.7) Basophils # (Auto) 0.1 x10^3/uL (0.0-0.2) Sodium Level 142 mmol/L (136-145) Potassium Level 3.5 mmol/L (3.5-5.1) Chloride Level 107 mmol/L (98-107) Carbon Dioxide Level 23 mmol/L (21-32) Anion Gap 12 (6-14) Blood Urea Nitrogen 7 mg/dL (7-20) Creatinine 0.9 mg/dL (0.6-1.0) Estimated GFR (Cockcroft-Gault) 91.6 Glucose Level 69 mg/dL (70-99) Calcium Level 8.5 mg/dL (8.5-10.1) Total Bilirubin 0.3 mg/dL (0.2-1.0) Direct Bilirubin 0.1 mg/dL (0.0-0.2) Aspartate Amino Transf (AST/SGOT) 34 U/L (15-37) Alanine Aminotransferase (ALT/SGPT) 42 U/L (14-59) Alkaline Phosphatase 47 U/L (46-116) Total Protein 6.7 g/dL (6.4-8.2) Albumin 3.5 g/dL (3.4-5.0) Ethyl Alcohol Level 201 mg/dL (0-10) Urine Opiates Screen Neg (NEG) Urine Methadone Screen Neg (NEG) Urine Barbiturates Neg (NEG) Urine Phencyclidine Screen Neg (NEG) Urine Amphetamine/Methamphetamine Neg (NEG) Urine Benzodiazepines Screen Pos (NEG) Urine Cocaine Screen Pos (NEG) Urine Cannabinoids Screen Pos (NEG) Urine Ethyl Alcohol Pos (NEG) JAYE HOLT MD October 31, 2016 14:36
[2016-10-31 15:00] VITALS: BP 116/70
[2016-10-31] MEDS ORDERED: ENOXAPARIN 40 MG/0.4 ML SYRINGE. SQ SCH (16:00)
[2016-10-31 19:00] VITALS: BP 118/73
[2016-10-31] MEDS ORDERED: NICOTINE 21MG PATCH. TD PRN (20:30)
[2016-10-31] MEDS ORDERED: PROMETH/CODEINE 6.25/10MG 5 ML SYRUP. PO SCH (21:00)
--- NOTE | 2016-10-31 22:37 | EEG ---
DATE OF SERVICE: 10/31/2016 EEG NUMBER: [id number]. OBJECTIVE: This is a 25-year-old female patient with a history of seizures from time to time, alcohol intoxication, positive test of cocaine, marijuana and . EEG was requested to evaluate the seizure activity. METHODS: Twenty electrodes were applied according to the international 10-20 electrode placement system. EKG monitoring, hyperventilation, intermittent photic stimulation, monopolar and bipolar montages are routinely utilized. The record was obtained on a digital system with video monitoring. MEDICATIONS: No anti-seizure medication. FINDINGS: 1. Background: The patient was recorded in the awake, drowsy, and sleep states. The overall background amplitude is 10-30 microvolts. A posterior dominant rhythm of 8-9 Hz is observed with superimposed fast activity in beta frequencies. 2. Abnormalities: No specific epileptiform discharge or electrographic seizure is seen. No focal or diffuse slowing. 3. Activation: Hyperventilation was performed with fair efforts and normal response. Intermittent photic stimulation was performed with photic driving. No specific epileptiform discharge or electrographic seizure induced by hyperventilation or intermittent photic stimulation. IMPRESSION: This EEG is within the broad normal limits of the study for the awake, drowsy, and sleep states. No focal, lateralizing, specific epileptiform discharge or electrographic seizure is seen. The fast activity in beta frequency may be effect of . JAYE HOLT MD DR: ASIM/della JOB#: [id number] / [id number]
[2016-10-31 23:00] VITALS: BP 111/85
[2016-11-01] MEDS: LORazepam 1 MG TABLET PO SCH ×2 (00:03→06:22)
[2016-11-01 02:18] LABS: HEP A IGM ABDY Negative (Negative)
[2016-11-01 07:00] VITALS: BP 118/79
[2016-11-01] MEDS: MULTIVIT INFUSN,ADULT 4,VIT K 10 ML, THIAMINE 100 MG, FOLIC ACID 1 MG in IV NORMAL SALI... IV SCH ×2 (08:44→09:00)
[2016-11-01] MEDS ORDERED: FOLI1TAB16 PO (10:30)
[2016-11-01] MEDS ORDERED: THIA100T22 PO (10:31)
--- NOTE | 2016-11-01 11:25 | ACF ---
Admission Forms Criteria SEIZURE Clinical Indications for Admission to Inpatient Care (Place 'X' for any and all applicable criteria): Admission is indicated for seizure and ANY ONE of the following(1)(2)(3)(4)(5): [X]I. Inpatient admission required rather than observation care (Also use Seizure: Observation Care Criteria as appropriate) because of ANY ONE of the following: [ ]a) Altered mental status that is severe or persistent [ ]b) New focal neurologic deficit that is severe or persistent [ ]c) Metabolic disorder (eg, hypoglycemia, hyponatremia) that is severe or persistent [X]d) Recurrent seizure [ ]e) Outpatient antiseizure regimen cannot be established (eg , patient cannot tolerate medication, initiation requires inpatient care) [ ]f) Need for ongoing intravenous infusion of antiseizure medication [ ]g) Cardiac arrhythmias of immediate concern [ ]h) Cerebral bleeding, hydrocephalus, or vasospasm monitoring (14) [ ]i) Increased intracranial pressure or cerebral edema monitoring (15) [ ]j) Other treatment or monitoring requiring inpatient admission [ ]II. Status epilepticus [A] or repetitive seizures not controlled with emergent treatment (6)(8) [ ]III. Brain disorder (eg, tumor, edema, and hydrocephalus) that requiring monitoring or intervention available only at inpatient level of care. [ ]IV. Brain insult (eg, severe trauma, stroke, drug toxicity, or withdrawal) that requires monitoring or intervention available only at inpatient level of care (10)(11) Extended stay beyond goal length of stay may be needed for (22) [ ]a) Complications of status epilepticus [ ]b) Refractory status epilepticus [ ]c) Etiology-specific therapy for conditions such as HYPERION ANALYST infection, head injury,eclampsia, severe metabolic abnormalities, and brain tumor [ ]d) Residual neurologic damage, [ ]e) Initiation of significant change to anticonvulsant treatment [ ]f) Older patients (65 years or older) [ ]g) Patient requiring intubation (eg, to protect airway) The original [employer] content created by [employer] has been revised. The portions of the content which have been revised are identified through the use of italic text or in bold, and [facility] [employer] has neither reviewed nor approved the modified material. All other unmodified content is copyright [facility] [employer]. Please see references footnoted in the original [facility] edition 2016 Admission Criteria Met?: Yes MCKAY BRUNNER November 01, 2016 11:25
--- NOTE | 2016-11-01 12:27 | PDOC3 ---
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 She has been followed by MED for her seizures before, as per pt, they did 24h vedio EEG and neg for epilepsy. Pt thinks "that are due to my drinking and anxiety" since she thought she still had seizure when she was off ETOH for 1 year. However, she only saw psych once and was not following with anyone or takes any meds for psych or seizure. as per ERP, When EMS arrived she was having a generalized tonic clonic seizure. They dosed here with IM versed and she arrived alert and oriented with no seizure activity upon presentation. Her LMP is today; she has had some loose stool but otherwise no acute illness. as per nurse, pt had 4 times seizure today, with only 1min confusion post seizure. denies fever, chills, chest pain, N/V. + mild cough. smoker EEG neg. pt has no seizure for 24h. The seizure could be alcohol intoxication/ withdrawl, plus multi drugs use, and pseudoseizures with psych issues. recommend PAT to talk to her and fu with psych clinic as outpt. However, pt refused to talk to PAT team. this pt should not be admitted next time since she refused recommendation here. dc time 40min. GEN.: No apparent distress. Alert and oriented. HEENT: Head is normocephalic, atraumatic NECK: Supple. LUNGS: Clear to auscultation. HEART: RRR, S1, S2 present. Peripheral pulses intact ABDOMEN: Soft, nontender. Positive bowel sounds. EXTREMITIES: Without any cyanosis. NEUROLOGIC: Normal speech, normal tone PSYCHIATRIC: Normal affect, normal mood. SKIN: No ulcerations Patient History: FH: diabetes mellitus Problems: Disposition home CONDITION AT DISCHARGE: Improved Diet regular Scheduled Folic Acid (Folic Acid), 1 MG PO DAILY Promethazine Hcl/Codeine (Promethazine-Codeine Syrup), 10 ML PO QHS Thiamine Mononitrate (Vitamin B-1), 100 MG PO DAILY Discontinued Medications Cephalexin (Cephalexin), 1 TAB PO QID Follow Up psych kassandra, however, pt refused YENNI FERRARI MD November 01, 2016 12:27
--- NOTE | 2016-11-01 15:55 | PDOC ---
PROGRESS NOTES Assessment Assessment Seizures, substance and drug related. Acute toxic encephalopathy, resolved. Alcohol intoxication, alcohol level 201 on 10/30/16. Cocaine positive. Cannabinoids positive. Benzo positive. Drinking. Smoking. Plasma donating. RECOMMENDATIONS/PLAN: Alcohol detoxication protocol. Vit B1 100 mg daily. No AED is recommended at the present time for alcohol and drug induced seizure. Patient education for substances and drugs abstinence. No driving for 6 months anytime after a seizure and she understood. Please consult General Office Assistant. FU with PCP. See Psychiatry for alcohol and drug use/abuse. EEG on 10/31/16: Normal. No epileptiform activity. HISTORY OF THE PRESENT ILLNESS: 25-y-old AA female was brought to the ER of [facility] after having seizures. She had seizures on 10/25, 10/26 and 10/27. She is a jeannette donating plasma and she had plasma donation on 10/30. After plasma donation, she drank 2 tall container of beer estimated 24 Oz and had 2 seizures afterwards. She had seizures in the past and was evaluated in [facility] and she said she was told her seizures were alcohol seizures and no AEDs were needed. She was found positivities for cocaine , cannabinoids, benzo alone with alcohol intoxication this time. PAST MEDICAL HISTORY: Please see above. PAST SURGERY HISTORY: . ALLERGY: Unknown MEDICATIONS: Refer to [facility] FAMILY HISTORY: No information is available. SOCIAL HISTORY: Lives at home with her children. She smokes 1/2 to 1 pack of cigarettes a day for 11 years. She drinks beers with uncertain amount multiple times a week for about 11 years. She uses drugs as above for years she did not disclose. REVIEW OF SYSTEMS: Constitutional: No malnutrition or cachexia. Head: No traumatic brain or head injury. Skin: No edema, or rash. Ear: No infection, tinnitus. Eyes: No vision loss or color blindness. Nose: No bleeding or purulent discharges. Hearing: No hearing decrease. Neck: No injury. Breast: No history of cancer, masses,or discharges. Cardiac: No [place], arrhythmia. Pulmonary: No pneumonia. GI: No GI ulcer, GI bleeding. Urinary/genital: No dysuria, incontinence, urinary retention. Endocrinologic: No cousin face, craniofacial dysmorphism, polydactyly. Skeletomuscular: No muscular atrophy, deformity. Neurological: see HP. Psychiatric: Denies drug use/abuse. Otherwise, not [id number] review of systems. PHYSICAL EXAMINATION: General appearance is in no acute distress. HEENT: Normocephalic and nontraumatic. Eyes, nose, ears, and throat are unremarkable. Neck is supple. No lymphadenopathy. No bruits are heard over the carotid artery. No crepitus. Cardiovascular: S1, S2, regular rate and rhythm. Pulmonary: Clear to auscultation bilaterally. Abdomen: Bowel sounds are positive. Extremities: No rash, lesions, or edema. No restriction of range of motion NEUROLOGICAL EXAMINATION: Awake. Oriented to time, place and person. PERRL. EOMI. CN: no focal findings. Muscle tone: within normal. Muscle strength: 5 DTR: 2 Plantar reflex: Not examed. Gait: at her baseline normal. Sensory exam: no abnormal findings. No cerebellar signs elicited. Objective Objective Vital Signs Date Time Temp Pulse Resp B/P (MAP) Pulse Ox O2 Delivery O2 Flow Rate FiO2 11/01/16 07:00 97.8 79 18 118/79 (92) 100 Room Air 97.8 Intake and Output 11/01/16 07:00 Intake Total 1200 ml Output Total 1600 ml Balance -400 ml Intake Oral 1200 ml Output Urine Total 1600 ml # Voids 3 Vitals Signs Vitals VS - Last 72 Hours, by Label Date Time Temp Pulse Resp B/P (MAP) Pulse Ox O2 Delivery O2 Flow Rate FiO2 11/01/16 07:00 97.8 79 18 118/79 (92) 100 Room Air 97.8 10/31/16 23:00 98.7 61 17 111/85 (94) 100 Room Air 98.7 10/31/16 20:00 Room Air 10/31/16 19:00 99.0 75 20 118/73 (88) 99 Room Air 99.0 10/31/16 15:00 98.0 74 20 116/70 (85) 98 Room Air 98.0 10/31/16 11:00 97.6 88 18 120/74 (89) 96 Room Air 97.6 10/31/16 07:00 98.0 78 22 114/77 (89) 99 Room Air 98.0 Medication Medications Current Medications Enoxaparin Sodium (Lovenox 40mg Syringe) 40 mg DAILY16 SQ Last administered on 10/31/16t 17:33; Start 10/31/16 at 16:00; Stop 11/01/16 at 13:41; Status DC Folic Acid (Folic Acid) 1 mg DAILY PO ; Start 11/02/16 at 09:00; Stop 11/02/16 at 09:00; Status DC Nicotine (Nicoderm Cq 21mg) 1 patch PRN DAILY PRN TD SMOKING CESSATION Last administered on 10/31/16 20:45; Start 10/31/16 at 20:30; Stop 11/01/16 at 13:41 ; Status DC Promethazine HCl/ Codeine (Phenergan With Codeine) 10 ml QHS PO Last administered on 10/31/16 19:43; Start 10/31/16 at 21:00; Stop 11/01/16 at 13:41 ; Status DC Thiamine Mononitrate (Vitamin B-1) 100 mg DAILY PO ; Start 11/02/16 at 09:00; Stop 11/02/16 at 09:00; Status DC Thiamine HCl 100 mg DAILY IM ; Start 11/05/16 at 09:00; Stop 11/05/16 at 09:01; Status Cancel Comment Review of Relevant I have reviewed the following items rachel (where applicable) has been applied. JAYE HOLT MD November 01, 2016 15:55
[2016-11-02] MEDS ORDERED: FOLIC ACID 1 MG TABLET. PO SCH (09:00)
[2016-11-02] MEDS ORDERED: THIAMINE 100 MG TABLET. PO SCH (09:00)
[2016-11-05] MEDS ORDERED: THIAMINE IM 200 MG/2 ML VIAL. IM SCH (09:00)
== END 2016-11-01 12:00 | disposition home or self-care (01) | DRG 896 ==
LOC: ER 21:57 → 5 SOUTH 10-31 01:03 → OBSVTOIN 10-31 01:07
PROVIDERS: ADMIT Internal Medicine; ATTEND Internal Medicine
DX: F10.239 Alcohol dependence with withdrawal, unspecified (principal); G92 Toxic encephalopathy; F10.129 Alcohol abuse with intoxication, unspecified; G40.409 Other generalized epilepsy and epileptic syndromes, not intractable, without status epilepticus; J20.8 Acute bronchitis due to other specified organisms; Y90.7 Blood alcohol level of 200-239 mg/100 ml; B34.9 Viral infection, unspecified; E11.9 Type 2 diabetes mellitus without complications; F14.10 Cocaine abuse, uncomplicated; F17.210 Nicotine dependence, cigarettes, uncomplicated; F43.10 Post-traumatic stress disorder, unspecified; Z82.49 Family history of ischemic heart disease and other diseases of the circulatory system; Z88.8 Allergy status to other drugs, medicaments and biological substances
CPT/HCPCS: 36415; 70450; 80048; 80074; 80076; 81025; 85027; 86703; 86706; 93005; 95816; 99406; G0379; G0480; G0481; J1650; J2060; J7030

== ENCOUNTER 2017-02-07 16:41 | Emergency (ER) | payer OTHER ==
[~2017-02-07] VITALS: Ht 172.7 cm; Wt 68.9 kg
[~2017-02-07 16:41] MED LIST changes: +FOLI1TAB16 PO; +THIA100T22 PO
[2017-02-07] MEDS ORDERED: IV NORMAL SALINE 1000ML BAG 1,000 ML IV ONE (17:00)
--- NOTE | 2017-02-07 17:09 | PHYS DOC ---
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 Patient states she just completed donating plasma when seizure-activity began. Patient was conversant by EMS but was not postictal by report. She denies hitting her head, headache, neck pain, neck stiffness. She denies change in vision, difficulty swallowing, extremity weakness or loss of sensation. Patient denies diagnosis of epilepsy. She is not in any medications and has not seen a provider for more than a year. She has diagnoses of anxiety and asthma. Last menstrual period was 3 weeks ago. Patient does not believe she is . No other acute symptoms or complaints at this time. Patient smokes cigarettes, marijuana and drinks occasional alcohol. Denies additional illicit drug use or prescription medication abuse. Review of Systems Review of Systems Review symptoms as per history of present illness. All other review symptoms are negative. Current Medications Current Medications Current Medications Medications (Trade) Dose Ordered Sig/Anne Start Time Stop Time Status Last Admin Dose Admin Potassium Chloride/Sodium Chloride 500 ml @ 125 mls/hr 1X ONCE 02/07/17 18:00 02/07/17 21:59 Cancel Sodium Chloride 1,000 ml @ 1,000 mls/hr 1X ONCE 02/07/17 17:00 02/07/17 17:59 DC 02/07/17 17:21 1,000 MLS/HR Allergies Allergies Allergies Coded Allergies Type Severity Reaction Last Updated Verified No Known Medication Allergies Allergy Unknown 11/01/16 Yes hydrocodone Adverse Reaction Mild Nausea 09/02/16 Yes Physical Exam Physical Exam Constitutional: Well developed, well nourished, no acute distress, non-toxic appearance. [] HENT: Normocephalic, atraumatic, bilateral external ears normal, oropharynx moist, no orolingual injuries or abrasions or lacerations, no oral exudates, nose normal. [] Eyes: PERRLA, EOMI, conjunctiva normal, no discharge. [] Neck: Normal range of motion, no tenderness, supple, no stridor. [] Cardiovascular:Heart rate regular rhythm, no murmur [] Lungs & Thorax: Bilateral breath sounds clear to auscultation [] Abdomen: Bowel sounds normal, soft, no tenderness, no masses, no pulsatile masses. [] Skin: Warm, dry, no erythema, no rash. [] Back: No tenderness, no CVA tenderness. [] Extremities: No tenderness, no cyanosis, no clubbing, ROM intact, no edema. [] Neurologic: Alert and oriented X 3, cranial nerves II through XII grossly intact , normal motor function, normal sensory function, no focal deficits noted. [] Psychologic: Affect, flat. [] Current Patient Data Vital Signs Vital Signs Date Time Temp Pulse Resp B/P (MAP) Pulse Ox O2 Delivery O2 Flow Rate FiO2 02/07/17 18:20 85 20 124/74 (91) 100 Room Air 02/07/17 16:41 98.8 98.8 Lab Values Laboratory Tests Test 02/07/17 17:13 02/07/17 18:15 White Blood Count 4.9 x10^3/uL (4.0-11.0) Red Blood Count 4.80 x10^6/uL (3.50-5.40) Hemoglobin 13.5 g/dL (12.0-15.5) Hematocrit 41.5 % (36.0-47.0) Mean Corpuscular Volume 87 fL (79-100) Mean Corpuscular Hemoglobin 28 pg (25-35) Mean Corpuscular Hemoglobin Concent 33 g/dL (31-37) Red Cell Distribution Width 15.9 % (11.5-14.5) H Platelet Count 196 x10^3/uL (140-400) Neutrophils (%) (Auto) 41 % (31-73) Lymphocytes (%) (Auto) 43 % (24-48) Monocytes (%) (Auto) 11 % (0-9) H Eosinophils (%) (Auto) 4 % (0-3) H Basophils (%) (Auto) 1 % (0-3) Neutrophils # (Auto) 2.0 x10^3uL (1.8-7.7) Lymphocytes # (Auto) 2.1 x10^3/uL (1.0-4.8) Monocytes # (Auto) 0.6 x10^3/uL (0.0-1.1) Eosinophils # (Auto) 0.2 x10^3/uL (0.0-0.7) Basophils # (Auto) 0.0 x10^3/uL (0.0-0.2) Sodium Level 139 mmol/L (136-145) Potassium Level 3.7 mmol/L (3.5-5.1) Chloride Level 105 mmol/L (98-107) Carbon Dioxide Level 25 mmol/L (21-32) Anion Gap 9 (6-14) Blood Urea Nitrogen 8 mg/dL (7-20) Creatinine 0.8 mg/dL (0.6-1.0) Estimated GFR (Cockcroft-Gault) 104.1 BUN/Creatinine Ratio 10 (6-20) Glucose Level 87 mg/dL (70-99) Calcium Level 8.7 mg/dL (8.5-10.1) Total Bilirubin 0.3 mg/dL (0.2-1.0) Aspartate Amino Transferase (AST) 27 U/L (15-37) Alanine Aminotransferase (ALT) 32 U/L (14-59) Alkaline Phosphatase 57 U/L (46-116) Total Protein 7.0 g/dL (6.4-8.2) Albumin 3.5 g/dL (3.4-5.0) Albumin/Globulin Ratio 1.0 (1.0-1.7) Ethyl Alcohol Level < 10 mg/dL (0-10) Urine Collection Type Unknown Urine Color Yellow Urine Clarity Clear Urine pH 6.0 Urine Specific [place] 1.020 Urine Protein Negative mg/dL (NEG-TRACE) Urine Glucose (UA) Negative mg/dL (NEG) Urine Ketones (Stick) Negative mg/dL (NEG) Urine Blood Negative (NEG) Urine Nitrite Negative (NEG) Urine Bilirubin Negative (NEG) Urine Urobilinogen Dipstick 1.0 mg/dL (0.2 mg/dL) Urine Leukocyte Esterase Trace (NEG) Urine RBC Occ /HPF (0-2) Urine WBC 1-4 /HPF (0-4) Urine Squamous Epithelial Cells Few /LPF Urine Bacteria Few /HPF (0-FEW) Urine Mucus Slight /LPF Urine Opiates Screen Neg (NEG) Urine Methadone Screen Neg (NEG) Urine Barbiturates Neg (NEG) Urine Phencyclidine Screen Neg (NEG) Urine Amphetamine/Methamphetamine Neg (NEG) Urine Benzodiazepines Screen Pos (NEG) Urine Cocaine Screen Pos (NEG) Urine Cannabinoids Screen Pos (NEG) Urine Ethyl Alcohol Pos (NEG) Laboratory Tests 02/07/17 17:13 Laboratory Tests 02/07/17 17:13 EKG EKG EKG : Sinus rhythm, rate 86, no acute ST-T wave changes, QTC 412.[] Radiology/Procedures Radiology/Procedures [] Course & Med Decision Making Course & Med Decision Making Pertinent Labs and Imaging studies reviewed. (See chart for details) [Patient with seizure-like activity resolved prior to ED arrival. Patient with normal neurologic exam on my evaluation. EKG, labs are normal with exception of UDS positive for cocaine and THC. Benzodiazepines were given by the EMS and alcohol was not detectable. Upon discussing symptoms and results with the patient, he became verbally hostile and states that she did not smoke cocaine and that she does not know how cocaine got into her system. She then started that I did nothing for her to determine why she had seizures. When I explained to her that I did not know whether she had seizures and that cocaine can cause seizures, the patient then became more verbally loud and aggressive. The patient 's cousin walked into the room without knocked or being unannounced. She may have overhead part of the conversation that was in place. Patient then accused me of violating HIPPA and stated that she would jemima me. I explained to the patient I did not directly share any information with the patient's visitor and that any information she may have heard was unintentional. The patient was encouraged to follow-up with her PCP for further evaluation and diagnosis and to clear her system of all drugs. The patient left prior to discharge instructions.] Dragon Disclaimer Dragon Disclaimer This electronic medical record was generated, in whole or in part, using a voice recognition dictation system. Departure Departure Impression: Primary Impression: Seizure-like activity Additional Impression: Substance abuse Disposition: 01 HOME, SELF-CARE Condition: STABLE Referrals: NO PCP (PCP) Patient Instructions: Nonepileptic Seizures, Seizure Disorder, Child, Generalized Tonic-Clonic, Substance Abuse-Brief Problem Qualifiers TAN OLIVAS DO Feb 07, 2017 17:09
[2017-02-07 17:25] LABS: BASO % 1 % (0-3); EOS % 4 % (0-3); HEMATOCRIT 41.5 % (36.0-47.0); HEMOGLOBIN 13.5 g/dL (12.0-15.5); LYMPH # 2.1 x10^3/uL (1.0-4.8); LYMPH % 43 % (24-48); MEAN CORPUSCULAR HEMOGLOBIN 28 pg (25-35); MEAN CORPUSCULAR HGB CONC 33 g/dL (31-37); MEAN CORPUSCULAR VOLUME 87 fL (79-100); MONO % 11 % (0-9); NEUT % 41 % (31-73); PLATELET COUNT 196 x10^3/uL (140-400); RED CELL DISTRIBUTION WIDTH 15.9 % (11.5-14.5); WHITE BLOOD COUNT 4.9 x10^3/uL (4.0-11.0)
[2017-02-07 17:52] LABS: CALCIUM 8.7 mg/dL (8.5-10.1); CREATININE 0.8 mg/dL (0.6-1.0); GFR 104.1; POTASSIUM 3.7 mmol/L (3.5-5.1)
[2017-02-07 17:56] LABS: ALBUMIN 3.5 g/dL (3.4-5.0); TOTAL BILIRUBIN 0.3 mg/dL (0.2-1.0)
[2017-02-07] MEDS ORDERED: POTASSIUM CL 40MEQ IN 0.9%NACL 500 ML IV ONE (18:00)
[2017-02-07 18:44] LABS: BILIRUBIN,URINE NEGATIVE (NEG); GLUCOSE,URINE NEGATIVE (NEG); NITRITE,URINE NEGATIVE (NEG); PROTEIN,URINE NEGATIVE (NEG-TRACE)
[2017-02-07 18:50] VITALS: BP 118/80
[2017-02-07 18:52] LABS: BARBITURATES NEG (NEG); BENZODIAZEPINES POS (NEG); CANNABINOIDS POS (NEG); COCAINE POS (NEG); METHADONE NEG (NEG); OPIATES NEG (NEG); PHENCYCLIDINE NEG (NEG)
[2017-02-07 19:01] LABS: BACTERIA,URINE FEW /HPF (0-FEW); RBC,URINE OCC /HPF (0-2); SQUAMOUS EPITHELIAL CELL,UR FEW /LPF
[2017-02-07 19:14] LABS: NEG OBC SER NEG; POS OBC SER POS
--- NOTE | 2017-02-08 09:04 | EKG ---
[facility] [address] [place] [address] Test Date: 2017-02-07 Test Time: 17:22:38 Pat Name: JEFRY GORDON Department: Room: Gender: F [employer]: : 1990 Requested By: TAN OLIVAS Order Number: [id number] Reading MD: Shaun Blakely Measurements Intervals Moore Rate: 86 P: 66 MD: 124 QRS: 63 QRSD: 76 T: 46 QT: 342 QTc: 412 Interpretive Statements SINUS RHYTHM Electronically Signed On 02-11-2017 9:53:37 CDT by Shaun Blakely
== END 2017-02-07 19:05 | disposition home or self-care (01) ==
LOC: ER 16:41
DX: G40.89 Other seizures (principal); F19.10 Other psychoactive substance abuse, uncomplicated; J45.909 Unspecified asthma, uncomplicated; F43.10 Post-traumatic stress disorder, unspecified; F12.10 Cannabis abuse, uncomplicated; Z88.5 Allergy status to narcotic agent
CPT/HCPCS: 36415; 80053; 80307; 81001; 84703; 85025; 87086; 93005; 96360; 99285; G0480; J7030; G0479

== ENCOUNTER 2018-09-14 18:12 | Emergency (ER) | payer OTHER ==
[~2018-09-14] VITALS: Ht 170.2 cm; Wt 68.0 kg
[~2018-09-14 18:12] MED LIST changes: -PROM118S2 PO; +PROM118S5 PO
[2018-09-14 18:45] LABS: BILIRUBIN,URINE NEGATIVE (NEG); COLOR,URINE YELLOW; NITRITE,URINE NEGATIVE (NEG); PROTEIN,URINE NEGATIVE (NEG-TRACE); UROBILINOGEN,URINE 0.2 mg/dL (0.2 mg/dL)
[2018-09-14 18:54] LABS: CLARITY,URINE CLEAR
[2018-09-14 18:57] LABS: BACTERIA,URINE 0 /HPF (0-FEW); RBC,URINE RARE /HPF (0-2); SQUAMOUS EPITHELIAL CELL,UR FEW /LPF; WBC,URINE 0 /HPF (0-4)
[2018-09-14] MEDS ORDERED: DICYCLOMINE HCL 10 MG CAPSULE PO ONE (19:00)
[2018-09-14] MEDS ORDERED: IV NORMAL SALINE 1000ML BAG 1,000 ML IV ONE (19:00)
[2018-09-14] MEDS ORDERED: metroNIDAZOLE 500 MG TABLET PO ONE (19:00)
[2018-09-14] MEDS ORDERED: AZITHROMYCIN 250 MG TABLET. PO ONE (19:00)
[2018-09-14] MEDS ORDERED: ONDANSETRON PF 4 MG/2 ML VIAL. IV ONE (19:00)
[2018-09-14] MEDS ORDERED: cefTRIAXone IV Push 1 GM VIAL. IVP ONE (19:00)
[2018-09-14 19:33] LABS: BASO # 0.1 x10^3/uL (0.0-0.2); BASO % 1 % (0-3); EOS # 0.2 x10^3/uL (0.0-0.7); EOS % 5 % (0-3); HEMOGLOBIN 11.8 g/dL (12.0-15.5); LYMPH # 2.3 x10^3/uL (1.0-4.8); LYMPH % 51 % (24-48); MEAN CORPUSCULAR HEMOGLOBIN 29 pg (25-35); MEAN CORPUSCULAR HGB CONC 34 g/dL (31-37); MEAN CORPUSCULAR VOLUME 87 fL (79-100); MONO # 0.5 x10^3/uL (0.0-1.1); MONO % 10 % (0-9); NEUT # 1.5 x10^3uL (1.8-7.7); NEUT % 32 % (31-73); PLATELET COUNT 265 x10^3/uL (140-400); RED BLOOD COUNT 4.04 x10^6/uL (3.50-5.40); RED CELL DISTRIBUTION WIDTH 15.2 % (11.5-14.5); WHITE BLOOD COUNT 4.6 x10^3/uL (4.0-11.0)
[2018-09-14 19:46] LABS: CALCIUM 8.4 mg/dL (8.5-10.1); CREATININE 0.9 mg/dL (0.6-1.0); GFR 90.2; POTASSIUM 4.5 mmol/L (3.5-5.1)
[2018-09-14 19:51] LABS: ALBUMIN 3.5 g/dL (3.4-5.0); TOTAL BILIRUBIN 0.2 mg/dL (0.2-1.0); TOTAL PROTEIN 6.9 g/dL (6.4-8.2)
[2018-09-14] MEDS ORDERED: ONDA4TAB12 PO (20:31)
[2018-09-14] MEDS ORDERED: METR500T PO (20:31)
--- NOTE | 2018-09-14 20:31 | PHYS DOC ---
Past Medical History Past Medical History: Asthma, Seizure, Other Additional Past Medical Histor: PTSD Past Surgical History: Alcohol Use: Occasionally Drug Use: Marijuana Adult General Chief Complaint Chief Complaint: ABDOMINAL PAIN HPI HPI Patient is a 27 year old female with no significant medical history who presents today complaining of diarrhea, nausea, abdominal cramping, symptoms began this morning. Patient denies any fever. She is also concerned she could have STDs and like to be tested and treated. She is also concerned she left her tampon in her vagina last week. She states she had one in but she doesn't remember what happened to it. Review of Systems Review of Systems Constitutional: Denies fever or chills [] Eyes: Denies change in visual acuity, redness, or eye pain [] HENT: Denies nasal congestion or sore throat [] Respiratory: Denies cough or shortness of breath [] Cardiovascular: No additional information not addressed in HPI [] GI: Reports abdominal cramping, nausea, denies vomiting, reports diarrhea, concerned she could have a tampon left in her vagina, STD concerns. : Denies dysuria or hematuria [] Musculoskeletal: Denies back pain or joint pain [] Integument: Denies rash or skin lesions [] Neurologic: Denies headache, focal weakness or sensory changes [] All other systems were reviewed and found to be within normal limits, except as documented in this note. Current Medications Current Medications Current Medications Medications (Trade) Dose Ordered Sig/Anne Start Time Stop Time Status Last Admin Dose Admin Azithromycin (Zithromax) 1,000 mg 1X ONCE 09/14/18 19:00 09/14/18 19:09 DC 09/14/18 19:47 1,000 MG Ceftriaxone Sodium (Rocephin) 1 gm 1X ONCE 09/14/18 19:00 09/14/18 19:04 DC 09/14/18 19:47 1 GM Dicyclomine HCl (Bentyl) 20 mg 1X ONCE 09/14/18 19:00 09/14/18 19:08 DC 09/14/18 19:47 20 MG Metronidazole (Flagyl) 2,000 mg 1X ONCE 09/14/18 19:00 09/14/18 19:09 DC 09/14/18 19:47 2,000 MG Ondansetron HCl (Zofran) 4 mg 1X ONCE 09/14/18 19:00 09/14/18 19:03 DC 09/14/18 19:46 4 MG Sodium Chloride 1,000 ml @ 1,000 mls/hr 1X ONCE 09/14/18 19:00 09/14/18 19:59 DC 09/14/18 19:46 1,000 MLS/HR Allergies Allergies Allergies Coded Allergies Type Severity Reaction Last Updated Verified No Known Medication Allergies Allergy Unknown 09/14/18 Yes hydrocodone Adverse Reaction Intermediate Nausea 09/14/18 Yes Physical Exam Physical Exam Constitutional: Well developed, well nourished, no acute distress, non-toxic appearance. [] HENT: Normocephalic, atraumatic, bilateral external ears normal, oropharynx moist, no oral exudates, nose normal. [] Eyes: PERRLA, EOMI, conjunctiva normal, no discharge. [] Neck: Normal range of motion, no tenderness, supple, no stridor. [] Cardiovascular:Heart rate regular rhythm, no murmur [] Lungs & Thorax: Bilateral breath sounds clear to auscultation [] Abdomen: Bowel sounds normal, soft, no tenderness, no masses, no pulsatile masses. [] Vaginal exam External pelvic is normal, no foreign object noted in the vaginal vault, no CMT , no adnexal tenderness, small amount of white discharge in the vaginal vault. Skin: Warm, dry, no erythema, no rash. [] Back: No tenderness, no CVA tenderness. [] Extremities: No tenderness, no cyanosis, no clubbing, ROM intact, no edema. [] Neurologic: Alert and oriented X 3, normal motor function, normal sensory function, no focal deficits noted. [] Psychologic: Affect normal, judgement normal, mood normal. [] Current Patient Data Vital Signs Vital Signs Date Time Temp Pulse Resp B/P (MAP) Pulse Ox O2 Delivery O2 Flow Rate FiO2 09/14/18 18:38 98.5 87 18 134/78 (96) 100 Room Air 98.5 Lab Values Laboratory Tests Test 09/14/18 18:38 09/14/18 18:40 09/14/18 19:23 Urine Collection Type Unknown Urine Color Yellow Urine Clarity Clear Urine pH 7.0 Urine Specific [place] 1.015 Urine Protein Negative mg/dL (NEG-TRACE) Urine Glucose (UA) Negative mg/dL (NEG) Urine Ketones (Stick) Negative mg/dL (NEG) Urine Blood Negative (NEG) Urine Nitrite Negative (NEG) Urine Bilirubin Negative (NEG) Urine Urobilinogen Dipstick 0.2 mg/dL (0.2 mg/dL) Urine Leukocyte Esterase Negative (NEG) Urine RBC Rare /HPF (0-2) Urine WBC 0 /HPF (0-4) Urine Squamous Epithelial Cells Few /LPF Urine Bacteria 0 /HPF (0-FEW) POC Urine HCG, Qualitative Hcg negative (Negative) White Blood Count 4.6 x10^3/uL (4.0-11.0) Red Blood Count 4.04 x10^6/uL (3.50-5.40) Hemoglobin 11.8 g/dL (12.0-15.5) L Hematocrit 35.0 % (36.0-47.0) L Mean Corpuscular Volume 87 fL (79-100) Mean Corpuscular Hemoglobin 29 pg (25-35) Mean Corpuscular Hemoglobin Concent 34 g/dL (31-37) Red Cell Distribution Width 15.2 % (11.5-14.5) H Platelet Count 265 x10^3/uL (140-400) Neutrophils (%) (Auto) 32 % (31-73) Lymphocytes (%) (Auto) 51 % (24-48) H Monocytes (%) (Auto) 10 % (0-9) H Eosinophils (%) (Auto) 5 % (0-3) H Basophils (%) (Auto) 1 % (0-3) Neutrophils # (Auto) 1.5 x10^3uL (1.8-7.7) L Lymphocytes # (Auto) 2.3 x10^3/uL (1.0-4.8) Monocytes # (Auto) 0.5 x10^3/uL (0.0-1.1) Eosinophils # (Auto) 0.2 x10^3/uL (0.0-0.7) Basophils # (Auto) 0.1 x10^3/uL (0.0-0.2) Sodium Level 142 mmol/L (136-145) Potassium Level 4.5 mmol/L (3.5-5.1) Chloride Level 105 mmol/L (98-107) Carbon Dioxide Level 27 mmol/L (21-32) Anion Gap 10 (6-14) Blood Urea Nitrogen 13 mg/dL (7-20) Creatinine 0.9 mg/dL (0.6-1.0) Estimated GFR (Cockcroft-Gault) 90.2 BUN/Creatinine Ratio 14 (6-20) Glucose Level 90 mg/dL (70-99) Calcium Level 8.4 mg/dL (8.5-10.1) L Total Bilirubin 0.2 mg/dL (0.2-1.0) Aspartate Amino Transferase (AST) 26 U/L (15-37) Alanine Aminotransferase (ALT) 48 U/L (14-59) Alkaline Phosphatase 95 U/L (46-116) Total Protein 6.9 g/dL (6.4-8.2) Albumin 3.5 g/dL (3.4-5.0) Albumin/Globulin Ratio 1.0 (1.0-1.7) Lipase 150 U/L (73-393) Laboratory Tests 09/14/18 19:23 Laboratory Tests 09/14/18 19:23 Microbiology 09/14/18 Wet Prep - Final, Complete EKG EKG [] Radiology/Procedures Radiology/Procedures [] Course & Med Decision Making Course & Med Decision Making Pertinent Labs and Imaging studies reviewed. (See chart for details) This is a 27-year-old female patient presented to the ED today with nausea, diarrhea, abdominal cramping, symptoms began today. Also complaining of concern for STDs, patient was given prophylaxis treatment. Also concerned she could have a tampon in her vagina, none was found. Labs are negative. Urine analysis is negative for infection. Patient was discharged to home. Wet prep was noted for BV-discharge and Flagyl. Follow-up with PCP in 1-2 weeks. Discharged with Zofran as well as dicyclomine. Dragon Disclaimer Dragon Disclaimer This electronic medical record was generated, in whole or in part, using a voice recognition dictation system. Departure Departure Impression: Primary Impression: Bacterial vaginosis Additional Impressions: Concern about STD in female without diagnosis Diarrhea Nausea without vomiting Disposition: 01 HOME, SELF-CARE Condition: STABLE Referrals: NO PCP (PCP) follow up with your doctor in 1-2 weeks Patient Instructions: Bacterial Vaginosis, Diarrhea, Nausea and Vomiting, Easy- to-Read Additional Instructions: You were evaluated in the emergency room for abdominal pain, diarrhea, nausea, is likely a viral illness, it will run its own course. We treated you for sexually transmitted diseases. You also have bacterial vaginosis. Ensure you complete the prescribed antibiotics. Scripts Ondansetron (ONDANSETRON ODT) 4 Mg Tab.rapdis 1 TAB PO PRN Q6-8HRS, #16 TAB Prov: MIRZA MOORE APRN 09/14/18 Metronidazole (FLAGYL) 500 Mg Tablet 1 TAB PO BID, #10 TAB Prov: MIRZA MOORE APRN 09/14/18 Problem Qualifiers Additional Impressions: Diarrhea Diarrhea type: unspecified type Qualified Codes: R19.7 - Diarrhea, unspecified MIRZA MOORE APRN Sep 14, 2018 20:31
[2018-09-14 20:41] VITALS: BP 113/64
[2018-09-16 13:22] LABS: GC PROBE Negative (Negative)
== END 2018-09-14 20:42 | disposition home or self-care (01) ==
LOC: ER 18:12
DX: N76.0 Acute vaginitis (principal); B96.89 Other specified bacterial agents as the cause of diseases classified elsewhere; R11.0 Nausea; R19.7 Diarrhea, unspecified; Z20.2 Contact with and (suspected) exposure to infections with a predominantly sexual mode of transmission; J45.909 Unspecified asthma, uncomplicated; Z98.890 Other specified postprocedural states; Z88.5 Allergy status to narcotic agent
CPT/HCPCS: 36415; 80053; 81001; 81025; 83690; 85025; 87491; 87591; 96361; 96374; 96375; 99284; J0696; J2405; J7030; Q0111; Q0144

== ENCOUNTER 2019-11-15 17:04 | Observation (INO) | payer OTHER ==
[~2019-11-15] VITALS: Ht 172.7 cm; Wt 78.1 kg
[~2019-11-15 17:04] MED LIST changes: +METR500T PO; +ONDA4TAB12 PO
[2019-11-15] MEDS ORDERED: IV NORMAL SALINE 1000ML BAG 1,000 ML IV ONE ×2 (17:30→21:45)
--- NOTE | 2019-11-15 17:35 | PHYS DOC ---
Past Medical History Past Medical History: Asthma, Seizure, Other Additional Past Medical Histor: PTSD Past Surgical History: Smoking Status: Current Every Day Smoker Alcohol Use: Occasionally Drug Use: Marijuana General Adult EDM: Chief Complaint: SEIZURE HPI: HPI: Patient is a 29 year old female who presents with patient states she has seizures. She states that prior to this week she has been having the seizures a couple times a day and states they do not last long and her boyfriend or that is in the room with her states they do not last long she does not go unconscious. Patient is in the room alert and oriented answering all questions appropriately. Before checking in patient and boyfriend ate a pizza in the lobby but patient is complaining of nausea and vomiting and unable to keep anything down. Patient and her significant other states that all week she has been fighting off these "seizures "and and has been having them daily multiple times. Patient states she is a heavy drinker and at least 4 beers a day. Rosalinda puga also has a history of substance abuse. Patient was last seen in [address] Joe of at which time this seizure like activity was due to substance abuse and alcohol abuse. When patient is lying in bed in the room she will be completely still and then looks like she shivers and then stops and states " this is what my seizures look like". Patient denies falling and patient's boyfriend or significant other denies her falling or any injuries. She denies any pain. She states when she stands up she gets very dizzy. She states when she is sitting she is not dizzy. She states that she just feels lightheaded. He denies any pain, chest pain, shortness of air, fever, abdominal pain, diarrhea, vision changes, numbness or tingling, focal weakness. Review of Systems: Review of Systems: Neurologic: Denies headache, focal weakness or sensory changes. Seizure. [] Heart Score: Risk Factors: Risk Factors: DM, Current or recent (<one month) smoker, HTN, HLP, family history of CAD, obesity. Risk Scores: Score 0 - 3: 2.5% MACE over next 6 weeks - Discharge Home Score 4 - 6: 20.3% MACE over next 6 weeks - Admit for Clinical Observation Score 7 - 10: 72.7% MACE over next 6 weeks - Early Invasive Strategies Current Medications: Current Medications Medications (Trade) Dose Ordered Sig/Anne Start Time Stop Time Status Last Admin Dose Admin Sodium Chloride 1,000 ml @ 1,000 mls/hr 1X ONCE 11/15/19 17:30 11/15/19 18:29 Allergies: Allergies: Allergies Coded Allergies Type Severity Reaction Last Updated Verified hydrocodone Adverse Reaction Intermediate Nausea, vomiting, "passing out" 11/15/19 Yes Physical Exam: PE: Constitutional: Well developed, well nourished, no acute distress, non-toxic appearance. Unsteady when standing. [] HENT: Normocephalic, atraumatic, bilateral external ears normal, oropharynx moist, no oral exudates, nose normal. [] Eyes: PERRLA, EOMI, conjunctiva normal, no discharge. [] Neck: Normal range of motion, no tenderness, supple, no stridor. [] Cardiovascular:Heart rate regular rhythm, no murmur [] Lungs & Thorax: Bilateral breath sounds clear to auscultation [] Abdomen: Bowel sounds normal, soft, no tenderness, no masses, no pulsatile masses. [] Skin: Warm, dry, no erythema, no rash. [] Back: No tenderness, no CVA tenderness. [] Extremities: No tenderness, no cyanosis, no clubbing, ROM intact, no edema. [] Neurologic: Alert and oriented X 3, normal motor function, normal sensory function, no focal deficits noted. [] Psychologic: Affect normal, judgement normal, mood normal. [] EKG: EK and read by Dr. Richard as sinus tachycardia no STEMI Radiology/Procedures: Radiology/Procedures: [] Impression: [facility] [address] [place], [place] [id number] IMAGING REPORT Signed PATIENT: JEFRY GORDON ACCOUNT: [id number] : 1990 LOCATION: ER AGE: 29 SEX: F EXAM STATUS: REG ER ORD. PHYSICIAN: YOLANDA GOMEZ APRN REASON: seizure PROCEDURE: CT HEAD WO CONTRAST PQRS Compliance Statement: One or more of the following individualized dose reduction techniques were utilized for this examination: 1. Automated exposure control 2. Adjustment of the mA and/or kV according to patient size 3. Use of iterative reconstruction technique CT HEAD WITHOUT CONTRAST History: Reason: seizure / Spl. Instructions: / History: Comparison: CT head without contrast, October 30, 2016. Procedure: Axial images are obtained of the head from the skull base through the vertex without IV contrast. Findings: The ventricles and sulci are normal for the patient's age. No mass-effect, midline shift, hemorrhage, extra-axial fluid collection, or obvious acute infarction is identified. Basilar cisterns are patent. Bone windows demonstrate no acute calvarial abnormality. The visualized paranasal sinuses are clear. Mastoid air cells are well aerated. IMPRESSION: No acute intracranial abnormality. Electronically signed by: Gary Hodgson MD (11/15/2019 8:24 PM) [facility] DICTATED and SIGNED BY: GARY HODGSON MD DATE: 11/15/192023 Course & Med Decision Making: Course & Med Decision Making Pertinent Labs and Imaging studies reviewed. (See chart for details) Patient was able to change out of her close into a gown by herself. She was able to walk from the wheelchair to the bed. When she stands up she is slightly wobbly because of her dizziness. She moves all extremities normally. Follows all commands appropriately. Answers all questions appropriately. Alert and oriented. Speaks in full clear sentences. Patient has not bitten her tongue and has full range of motion of her neck and denies any pain or injuries. Abdomen is soft and nontender. PERRLA. Moves all extremities normally. Patient denies a headache. No nystagmus. Vital signs are within normal limits. Seizure precautions are placed. The Orthostatic is as following layin/74, 82 Sittin/52, 125 Standin/50, 98 Patient has had 1L NS and 1L Banana Bag. Patient is still dizzy upon standing. Patient is positive for PCP, methamphetamines and marijuana. I have spoken to Dr. Samaniego concerning this patient and admission. I will consult neurology. [] Maria Del Carmen Disclaimer: Maria Del Carmen Disclaimer: This electronic medical record was generated, in whole or in part, using a voice recognition dictation system. Departure Departure Impression: Primary Impression: Seizure-like activity Additional Impression: Orthostatic hypotension Disposition: ADMITTED INPATIENT Admitting Physician: BRUCE Condition: STABLE Referrals: NO PCP (PCP) Justicifation of Admission Dx: Justifications for Admission: Justification of Admission Dx: Yes Comments: Orthostatic Hypotension YOLANDA GOMEZ SQL [employer]ELOPER Nov 15, 2019 17:35
[2019-11-15] MEDS ORDERED: MULTIVIT INFUSN,ADULT 4,VIT K 10 ML, THIAMINE INJ 100 MG, FOLIC ACID INJ 1 MG in IV NOR... IV ONE (18:00)
[2019-11-15 18:13] LABS: BASO % 2 % (0-3); EOS # 0.1 x10^3/uL (0.0-0.7); EOS % 2 % (0-3); HEMATOCRIT 40.2 % (36.0-47.0); HEMOGLOBIN 13.6 g/dL (12.0-15.5); LYMPH # 1.7 x10^3/uL (1.0-4.8); LYMPH % 54 % (24-48); MEAN CORPUSCULAR HEMOGLOBIN 28 pg (25-35); MEAN CORPUSCULAR HGB CONC 34 g/dL (31-37); MEAN CORPUSCULAR VOLUME 84 fL (79-100); MONO # 0.4 x10^3/uL (0.0-1.1); MONO % 12 % (0-9); NEUT # 0.9 x10^3/uL (1.8-7.7); NEUT % 30 % (31-73); PLATELET COUNT 292 x10^3/uL (140-400); RED CELL DISTRIBUTION WIDTH 15.7 % (11.5-14.5); WHITE BLOOD COUNT 3.1 x10^3/uL (4.0-11.0)
[2019-11-15 18:18] LABS: CALCIUM 8.7 mg/dL (8.5-10.1); CREATININE 1.2 mg/dL (0.6-1.0); GFR 63.8; POTASSIUM 3.7 mmol/L (3.5-5.1)
--- NOTE | 2019-11-15 18:20 | EKG ---
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 Electronically Signed On 11-19-2019 16:05:27 CDT by Luc Katz
[2019-11-15 18:23] LABS: PROTHROMBIN TIME PATIENT 12.7 SEC (11.7-14.0)
[2019-11-15 18:36] LABS: ALBUMIN 3.5 g/dL (3.4-5.0); ALBUMIN/GLOBULIN RATIO 0.9 (1.0-1.7); TOTAL BILIRUBIN 0.2 mg/dL (0.2-1.0); TOTAL PROTEIN 7.5 g/dL (6.4-8.2)
[2019-11-15 19:17] LABS: % ATYL 1 % (0-0); % BANDS 1 % (0-9); % EOS 2 % (0-5); % LYMPHS 56 % (24-48); % MONOS 5 % (0-10); % SEGS 35 % (35-66); ANISOCYTOSIS SLIGHT; HYPOCHROMIA SLIGHT; PLT ESTIMATE ADEQUATE (ADEQUATE)
[2019-11-15 20:01] LABS: CLARITY,URINE TURBID; COLOR,URINE RED
[2019-11-15 20:11] LABS: BACTERIA,URINE MODERATE /HPF (0-FEW); RBC,URINE TNTC /HPF (0-2); SQUAMOUS EPITHELIAL CELL,UR MANY /LPF
[2019-11-15 20:17] LABS: BARBITURATES NEG (NEG); BENZODIAZEPINES NEG (NEG); CANNABINOIDS POS (NEG); COCAINE NEG (NEG); METHADONE NEG (NEG); OPIATES NEG (NEG); PHENCYCLIDINE POS (NEG)
[2019-11-15 20:18] LABS: AMPHETAMINE/METHAMPHETAMINE POS (NEG)
--- NOTE | 2019-11-15 20:27 | RAD ---
RS Compliance Statement: One or more of the following individualized dose reduction techniques were utilized for this examination: 1. Automated exposure control 2. Adjustment of the mA and/or kV according to patient size 3. Use of iterative reconstruction technique CT HEAD WITHOUT CONTRAST History: Reason: seizure / Spl. Instructions: / History: Comparison: CT head without contrast, October 30, 2016. Procedure: Axial images are obtained of the head from the skull base through the vertex without IV contrast. Findings: The ventricles and sulci are normal for the patient's age. No mass-effect, midline shift, hemorrhage, extra-axial fluid collection, or obvious acute infarction is identified. Basilar cisterns are patent. Bone windows demonstrate no acute calvarial abnormality. The visualized paranasal sinuses are clear. Mastoid air cells are well aerated. IMPRESSION: No acute intracranial abnormality. Electronically signed by: Gary Hodgson MD (11/15/2019 8:24 PM) [facility]
[2019-11-15] MEDS ORDERED: ONDANSETRON ODT 4 MG TAB.RAPDIS. PO PRN (21:30)
[2019-11-15] MEDS ORDERED: ZOLPIDEM 5 MG TABLET. PO PRN (21:30)
[2019-11-15] MEDS ORDERED: HALOPERIDOL LACTATE 5 MG/ML VIAL. IVP PRN (21:30)
[2019-11-15] MEDS ORDERED: rOPINIRole 0.25 MG TABLET. PO SCH (21:30)
[2019-11-15] MEDS ORDERED: NICOTINE 21MG PATCH. TD PRN (21:30)
--- NOTE | 2019-11-15 21:34 | PDOC1 ---
History and Physical Date of Admission Date of Admission DATE: 11/15/19 TIME: 21:28 Source Source: Chart review, Patient History of Present Illness History of Present Illness Ms. Kang is a 29 year old female who presents with patient states she has seizures. She reports her Whole body shakes at night, and she cannot sleep. tremor in her hand and at rest. Now she says, she has seizures a couple times a day and states they do not last long but she is awake the entire time. Patient is in the room alert and oriented answering all questions appropriately. complains of nausea and vomiting and weakness but has eaten tonight, toleratred has seen Dr. Joe here 2017 was seeing a doctor at , but stopped as she didn;t like the doctor she admits to 6 beers a day and occassional THC use, she did not admit to what showed up in her urine She states when she stands up she gets very dizzy, lightheaded. H Past Medical History Cardiovascular: HTN Pulmonary: No pertinent hx GI: No pertinent hx Heme/Onc: No pertinent hx Hepatobiliary: No pertinent hx ENT: No pertinent hx Renal/: No pertinent hx Past Surgical History Past Surgical History: Family History Family History: Hypertension Social History Smoke: <1 pack per day ALCOHOL: heavy Drugs: Cocaine, Marijuana, Crystal meth, Other Current Problem List Problem List Problems Medical Problems: (1) Orthostatic hypotension Status: Acute (2) Seizure-like activity Status: Acute Current Medications Current Medications Current Medications Sodium Chloride 1,000 ml @ 1,000 mls/hr 1X ONCE IV Last administered on 11/15/19at 17:56; Start 11/15/19 at 17:30; Stop 11/15/19 at 18:29; Status DC Multivitamins 10 ml/Thiamine HCl 100 mg/Folic Acid 1 mg/Sodium Chloride 1,011.2 ml @ 1,000.088 mls/hr 1X ONCE IV Last administered on 11/15/19at 18:18; Start 11/15/19 at 18:00; Stop 11/15/19 at 19:00; Status DC Zolpidem Tartrate (Ambien) 5 mg PRN QHS PRN PO INSOMNIA; Start 11/15/19 at 21:30; Status UNV Ropinirole HCl (Requip) 0.25 mg HS PO ; Start 11/15/19 at 21:30 Active Scripts Active Ondansetron Odt (Ondansetron) 4 Mg Tab.rapdis 1 Tab PO PRN Q6-8HRS Flagyl (Metronidazole) 500 Mg Tablet 1 Tab PO BID Vitamin B-1 (Thiamine Mononitrate) 100 Mg Tablet 100 Mg PO DAILY 30 Days Folic Acid 1 Mg Tablet 1 Mg PO DAILY 30 Days Promethazine-Codeine Syrup (Promethazine Hcl/Codeine) 118 Ml Syrup 10 Ml PO QHS Allergies Allergies: Coded Allergies: hydrocodone (Verified Adverse Reaction, Intermediate, Nausea, vomiting, "passing out", 11/15/19) ROS General: YES: Chills, Fatigue PSYCHOLOGICAL ROS: YES: Anxiety, Irritablity, Sleep disturbances; No: Behavioral Disorder, Concentration difficultie, Decreased libido, Depression, Disorientation, Hallucinations, Hostility, Memory difficulties, Mood Swings, Obsessive thoughts, Other Eyes: No Blurry vision, No Decreased vision, No Double vision, No Dry eyes, No Excessive tearing, No Eye Pain, No Itchy Eyes, No Loss of vision, No Photophobia, No Scotomata, No Uses contacts, No Uses glasses, No Other Respiratory: No: Cough, Hemoptysis, Orthopnea, Pleuritic Pain, Shortness of b reath, SOB with excertion, Sputum Changes, Stridor, Tachypnea, Wheezing, Other Cardiovascular: No Chest Pain, No Palpitations, No Orthopnea, No Paroxysmal Noc. Dyspnea, No Edema, No Lt Headedness, No Other Gastrointestinal: Yes Nausea; No Vomiting, No Abdominal Pain, No Diarrhea, No Constipation, No Melena, No Hematochezia, No Other Genitourinary: No Dysuria, No Frequency, No Incontinence, No Hematuria, No Retention, No Discharge, No Urgency, No Pain, No Flank Pain, No Other, No , No , No , No , No , No , No Musculoskeletal: Yes Joint Pain, Yes Joint Stiffness Neurological: Yes Headaches, Yes Tremors Skin: No Dry Skin, No Eczema, No Hair Changes, No Lumps, No Mole Changes, No Mottling, No Nail Changes, No Pruritus, No Rash, No Skin Lesion Changes, No Other, No Acne Physical Exam General: Alert, Oriented X3, Cooperative, mild distress HEENT: Atraumatic Lungs: Clear to auscultation Extremities: No clubbing, No edema Skin: No breakdown Neuro: Normal gait, Normal tone, Sensation intact Psych/Mental Status: Mood NL Vitals Vitals Vital Signs Date Time Temp Pulse Resp B/P (MAP) Pulse Ox O2 Delivery O2 Flow Rate FiO2 11/15/19 19:15 90 100 11/15/19 17:15 99.2 20 115/75 (88) Room Air 99.2 Labs Labs Laboratory Tests Test 11/15/19 17:58 11/15/19 19:56 White Blood Count 3.1 x10^3/uL (4.0-11.0) Red Blood Count 4.80 x10^6/uL (3.50-5.40) Hemoglobin 13.6 g/dL (12.0-15.5) Hematocrit 40.2 % (36.0-47.0) Mean Corpuscular Volume 84 fL (79-100) Mean Corpuscular Hemoglobin 28 pg (25-35) Mean Corpuscular Hemoglobin Concent 34 g/dL (31-37) Red Cell Distribution Width 15.7 % (11.5-14.5) Platelet Count 292 x10^3/uL (140-400) Neutrophils (%) (Auto) 30 % (31-73) Lymphocytes (%) (Auto) 54 % (24-48) Monocytes (%) (Auto) 12 % (0-9) Eosinophils (%) (Auto) 2 % (0-3) Basophils (%) (Auto) 2 % (0-3) Neutrophils # (Auto) 0.9 x10^3/uL (1.8-7.7) Lymphocytes # (Auto) 1.7 x10^3/uL (1.0-4.8) Monocytes # (Auto) 0.4 x10^3/uL (0.0-1.1) Eosinophils # (Auto) 0.1 x10^3/uL (0.0-0.7) Basophils # (Auto) 0.0 x10^3/uL (0.0-0.2) Segmented Neutrophils % 35 % (35-66) Band Neutrophils % 1 % (0-9) Lymphocytes % 56 % (24-48) Atypical Lymphocytes % (Manual) 1 % (0-0) Monocytes % 5 % (0-10) Eosinophils % 2 % (0-5) Platelet Estimate Adequate (ADEQUATE) Hypochromasia Slight Anisocytosis Slight Prothrombin Time 12.7 SEC (11.7-14.0) Prothromb Time International Ratio 1.0 (0.8-1.1) Urine Collection Type Unknown Urine Color Red Urine Clarity Turbid Urine pH (<5.0-8.0) Urine Specific [place] 1.020 (1.000-1.030) Urine Protein mg/dL (NEG-TRACE) Urine Glucose (UA) mg/dL (NEG) Urine Ketones (Stick) mg/dL (NEG) Urine Blood (NEG) Urine Nitrite (NEG) Urine Bilirubin (NEG) Urine Urobilinogen Dipstick mg/dL (0.2 mg/dL) Urine Leukocyte Esterase (NEG) Urine RBC Tntc /HPF (0-2) Urine WBC 5-10 /HPF (0-4) Urine Squamous Epithelial Cells Many /LPF Urine Bacteria Moderate /HPF (0-FEW) Urine Mucus Mod /LPF Sodium Level 138 mmol/L (136-145) Potassium Level 3.7 mmol/L (3.5-5.1) Chloride Level 103 mmol/L (98-107) Carbon Dioxide Level 24 mmol/L (21-32) Anion Gap 11 (6-14) Blood Urea Nitrogen 11 mg/dL (7-20) Creatinine 1.2 mg/dL (0.6-1.0) Estimated GFR (Cockcroft-Gault) 63.8 BUN/Creatinine Ratio 9 (6-20) Glucose Level 81 mg/dL (70-99) Lactic Acid Level 1.8 mmol/L (0.4-2.0) Calcium Level 8.7 mg/dL (8.5-10.1) Magnesium Level 1.9 mg/dL (1.8-2.4) Total Bilirubin 0.2 mg/dL (0.2-1.0) Aspartate Amino Transf (AST/SGOT) 27 U/L (15-37) Alanine Aminotransferase (ALT/SGPT) 33 U/L (14-59) Alkaline Phosphatase 74 U/L (46-116) Total Protein 7.5 g/dL (6.4-8.2) Albumin 3.5 g/dL (3.4-5.0) Albumin/Globulin Ratio 0.9 (1.0-1.7) Urine Opiates Screen Neg (NEG) Urine Methadone Screen Neg (NEG) Urine Barbiturates Neg (NEG) Urine Phencyclidine Screen Pos (NEG) Urine Amphetamine/Methamphetamine Pos (NEG) Urine Benzodiazepines Screen Neg (NEG) Urine Cocaine Screen Neg (NEG) Urine Cannabinoids Screen Pos (NEG) Ethyl Alcohol Level < 10 mg/dL (0-10) Urine Ethyl Alcohol Neg (NEG) Bedside Urine HCG, Qualitative Hcg negative (Negative) Laboratory Tests Test 11/15/19 17:58 11/15/19 19:56 White Blood Count 3.1 x10^3/uL (4.0-11.0) Red Blood Count 4.80 x10^6/uL (3.50-5.40) Hemoglobin 13.6 g/dL (12.0-15.5) Hematocrit 40.2 % (36.0-47.0) Mean Corpuscular Volume 84 fL (79-100) Mean Corpuscular Hemoglobin 28 pg (25-35) Mean Corpuscular Hemoglobin Concent 34 g/dL (31-37) Red Cell Distribution Width 15.7 % (11.5-14.5) Platelet Count 292 x10^3/uL (140-400) Neutrophils (%) (Auto) 30 % (31-73) Lymphocytes (%) (Auto) 54 % (24-48) Monocytes (%) (Auto) 12 % (0-9) Eosinophils (%) (Auto) 2 % (0-3) Basophils (%) (Auto) 2 % (0-3) Neutrophils # (Auto) 0.9 x10^3/uL (1.8-7.7) Lymphocytes # (Auto) 1.7 x10^3/uL (1.0-4.8) Monocytes # (Auto) 0.4 x10^3/uL (0.0-1.1) Eosinophils # (Auto) 0.1 x10^3/uL (0.0-0.7) Basophils # (Auto) 0.0 x10^3/uL (0.0-0.2) Segmented Neutrophils % 35 % (35-66) Band Neutrophils % 1 % (0-9) Lymphocytes % 56 % (24-48) Atypical Lymphocytes % (Manual) 1 % (0-0) Monocytes % 5 % (0-10) Eosinophils % 2 % (0-5) Platelet Estimate Adequate (ADEQUATE) Hypochromasia Slight Anisocytosis Slight Prothrombin Time 12.7 SEC (11.7-14.0) Prothromb Time International Ratio 1.0 (0.8-1.1) Urine Collection Type Unknown Urine Color Red Urine Clarity Turbid Urine pH (<5.0-8.0) Urine Specific [place] 1.020 (1.000-1.030) Urine Protein mg/dL (NEG-TRACE) Urine Glucose (UA) mg/dL (NEG) Urine Ketones (Stick) mg/dL (NEG) Urine Blood (NEG) Urine Nitrite (NEG) Urine Bilirubin (NEG) Urine Urobilinogen Dipstick mg/dL (0.2 mg/dL) Urine Leukocyte Esterase (NEG) Urine RBC Tntc /HPF (0-2) Urine WBC 5-10 /HPF (0-4) Urine Squamous Epithelial Cells Many /LPF Urine Bacteria Moderate /HPF (0-FEW) Urine Mucus Mod /LPF Sodium Level 138 mmol/L (136-145) Potassium Level 3.7 mmol/L (3.5-5.1) Chloride Level 103 mmol/L (98-107) Carbon Dioxide Level 24 mmol/L (21-32) Anion Gap 11 (6-14) Blood Urea Nitrogen 11 mg/dL (7-20) Creatinine 1.2 mg/dL (0.6-1.0) Estimated GFR (Cockcroft-Gault) 63.8 BUN/Creatinine Ratio 9 (6-20) Glucose Level 81 mg/dL (70-99) Lactic Acid Level 1.8 mmol/L (0.4-2.0) Calcium Level 8.7 mg/dL (8.5-10.1) Magnesium Level 1.9 mg/dL (1.8-2.4) Total Bilirubin 0.2 mg/dL (0.2-1.0) Aspartate Amino Transf (AST/SGOT) 27 U/L (15-37) Alanine Aminotransferase (ALT/SGPT) 33 U/L (14-59) Alkaline Phosphatase 74 U/L (46-116) Total Protein 7.5 g/dL (6.4-8.2) Albumin 3.5 g/dL (3.4-5.0) Albumin/Globulin Ratio 0.9 (1.0-1.7) Urine Opiates Screen Neg (NEG) Urine Methadone Screen Neg (NEG) Urine Barbiturates Neg (NEG) Urine Phencyclidine Screen Pos (NEG) Urine Amphetamine/Methamphetamine Pos (NEG) Urine Benzodiazepines Screen Neg (NEG) Urine Cocaine Screen Neg (NEG) Urine Cannabinoids Screen Pos (NEG) Ethyl Alcohol Level < 10 mg/dL (0-10) Urine Ethyl Alcohol Neg (NEG) Bedside Urine HCG, Qualitative Hcg negative (Negative) VTE Prophylaxis Ordered VTE Prophylaxis Devices: No VTE Pharmacological Prophylaxi: Yes Assessment/Plan Assessment/Plan orthostatic hypotension shakes and whole body tremor substance abuse disorder admit obs Justicifation of Admission Dx: Justifications for Admission: Justification of Admission Dx: No (obs) TJ SARABIA MD Nov 15, 2019 21:33
--- NOTE | 2019-11-15 23:25 | NUR ---
ADMISSION NOTE: Patient arrived to room 669 via wheelchair, accompanied by ED staff at approximately this time. Patient able to transfer self to hospital bed. Bed low, locked, call light within reach. Patient has no complaints at this time. Will complete admission questionnaire and continue to monitor.
[2019-11-15 23:49] VITALS: BP 127/92
[2019-11-16 02:53] VITALS: BP 135/95
[2019-11-16] MEDS ORDERED: ACETAMINOPHEN 325 MG TABLET. PO PRN (03:15)
[2019-11-16 04:43] LABS: BASO % 1 % (0-3); EOS # 0.1 x10^3/uL (0.0-0.7); EOS % 2 % (0-3); HEMATOCRIT 36.3 % (36.0-47.0); LYMPH # 2.3 x10^3/uL (1.0-4.8); LYMPH % 67 % (24-48); MEAN CORPUSCULAR HEMOGLOBIN 28 pg (25-35); MEAN CORPUSCULAR HGB CONC 33 g/dL (31-37); MEAN CORPUSCULAR VOLUME 84 fL (79-100); MONO # 0.4 x10^3/uL (0.0-1.1); MONO % 11 % (0-9); NEUT # 0.7 x10^3/uL (1.8-7.7); NEUT % 19 % (31-73); PLATELET COUNT 257 x10^3/uL (140-400); RED BLOOD COUNT 4.33 x10^6/uL (3.50-5.40); RED CELL DISTRIBUTION WIDTH 15.8 % (11.5-14.5); WHITE BLOOD COUNT 3.4 x10^3/uL (4.0-11.0)
[2019-11-16 05:11] LABS: ALBUMIN 2.9 g/dL (3.4-5.0); ALBUMIN/GLOBULIN RATIO 0.9 (1.0-1.7); CALCIUM 7.6 mg/dL (8.5-10.1); GFR 78.8; POTASSIUM 3.8 mmol/L (3.5-5.1); TOTAL BILIRUBIN 0.2 mg/dL (0.2-1.0); TOTAL PROTEIN 6.2 g/dL (6.4-8.2)
[2019-11-16 07:00] VITALS: BP 118/82
[2019-11-16] MEDS ORDERED: VITAMIN B COMPLEX TABLET. PO SCH (09:00)
[2019-11-16 11:00] VITALS: BP 119/88
[2019-11-16 11:05] VITALS: BP 106/80
[2019-11-16 11:10] VITALS: BP 188/150
--- NOTE | 2019-11-16 11:38 | NUR ---
SW following for discharge planning. SW reviewed chart and coordinated care with RN. SW met with pt who denied using drugs other than marijuana despite toxicology results. Pt declined PAT referral or resources r/t drug and alcohol abuse. 6 min walk has been ordered to determine if oxygen is needed at discharge per Dr. Parada. SW to arrange for 02 if need is indicated and pt accepts it, as pt informed this SW this morning that she does not want 02 upon discharge. Addendum: 11/16/19 at 1641 by THOMAS GORDON Spoke with RN and 02 is not needed. Pt to discharge today, 11/16/2019. No further SW needs at this time.
--- NOTE | 2019-11-16 14:20 | PDOC3 ---
Discharge Summary Visit Information Date of Admission: Nov 15, 2019 Date of Discharge: Nov 16, 2019 Admitting Diagnosis Comment: orthostatic hypotension shakes and whole body tremor substance abuse disorder Final Diagnosis Problems Medical Problems: (1) Orthostatic hypotension ruled out Status: Acute (2) Seizure-like activity, most likely psychogenic tremor Status: Acute polysubstance abuse (amphetamines and cannabinoids) Brief Hospital Course Allergies Allergies Coded Allergies Type Severity Reaction Last Updated Verified hydrocodone Adverse Reaction Intermediate Nausea, vomiting, "passing out" 11/15/19 Yes Vital Signs Vital Signs Date Time Temp Pulse Resp B/P (MAP) Pulse Ox O2 Delivery O2 Flow Rate FiO2 11/16/19 11:10 121 17 188/150 (163) 89 Room Air 11/16/19 11:00 97.8 97.8 Lab Results Laboratory Tests Test 11/15/19 17:58 11/15/19 19:56 11/16/19 03:40 White Blood Count 3.1 x10^3/uL (4.0-11.0) 3.4 x10^3/uL (4.0-11.0) Red Blood Count 4.80 x10^6/uL (3.50-5.40) 4.33 x10^6/uL (3.50-5.40) Hemoglobin 13.6 g/dL (12.0-15.5) 12.0 g/dL (12.0-15.5) Hematocrit 40.2 % (36.0-47.0) 36.3 % (36.0-47.0) Mean Corpuscular Volume 84 fL (79-100) 84 fL (79-100) Mean Corpuscular Hemoglobin 28 pg (25-35) 28 pg (25-35) Mean Corpuscular Hemoglobin Concent 34 g/dL (31-37) 33 g/dL (31-37) Red Cell Distribution Width 15.7 % (11.5-14.5) 15.8 % (11.5-14.5) Platelet Count 292 x10^3/uL (140-400) 257 x10^3/uL (140-400) Neutrophils (%) (Auto) 30 % (31-73) 19 % (31-73) Lymphocytes (%) (Auto) 54 % (24-48) 67 % (24-48) Monocytes (%) (Auto) 12 % (0-9) 11 % (0-9) Eosinophils (%) (Auto) 2 % (0-3) 2 % (0-3) Basophils (%) (Auto) 2 % (0-3) 1 % (0-3) Neutrophils # (Auto) 0.9 x10^3/uL (1.8-7.7) 0.7 x10^3/uL (1.8-7.7) Lymphocytes # (Auto) 1.7 x10^3/uL (1.0-4.8) 2.3 x10^3/uL (1.0-4.8) Monocytes # (Auto) 0.4 x10^3/uL (0.0-1.1) 0.4 x10^3/uL (0.0-1.1) Eosinophils # (Auto) 0.1 x10^3/uL (0.0-0.7) 0.1 x10^3/uL (0.0-0.7) Basophils # (Auto) 0.0 x10^3/uL (0.0-0.2) 0.0 x10^3/uL (0.0-0.2) Segmented Neutrophils % 35 % (35-66) Band Neutrophils % 1 % (0-9) Lymphocytes % 56 % (24-48) Atypical Lymphocytes % (Manual) 1 % (0-0) Monocytes % 5 % (0-10) Eosinophils % 2 % (0-5) Platelet Estimate Adequate (ADEQUATE) Hypochromasia Slight Anisocytosis Slight Prothrombin Time 12.7 SEC (11.7-14.0) Prothromb Time International Ratio 1.0 (0.8-1.1) Urine Collection Type Unknown Urine Color Red Urine Clarity Turbid Urine pH (<5.0-8.0) Urine Specific [place] 1.020 (1.000-1.030) Urine Protein mg/dL (NEG-TRACE) Urine Glucose (UA) mg/dL (NEG) Urine Ketones (Stick) mg/dL (NEG) Urine Blood (NEG) Urine Nitrite (NEG) Urine Bilirubin (NEG) Urine Urobilinogen Dipstick mg/dL (0.2 mg/dL) Urine Leukocyte Esterase (NEG) Urine RBC Tntc /HPF (0-2) Urine WBC 5-10 /HPF (0-4) Urine Squamous Epithelial Cells Many /LPF Urine Bacteria Moderate /HPF (0-FEW) Urine Mucus Mod /LPF Sodium Level 138 mmol/L (136-145) 137 mmol/L (136-145) Potassium Level 3.7 mmol/L (3.5-5.1) 3.8 mmol/L (3.5-5.1) Chloride Level 103 mmol/L (98-107) 105 mmol/L (98-107) Carbon Dioxide Level 24 mmol/L (21-32) 24 mmol/L (21-32) Anion Gap 11 (6-14) 8 (6-14) Blood Urea Nitrogen 11 mg/dL (7-20) 10 mg/dL (7-20) Creatinine 1.2 mg/dL (0.6-1.0) 1.0 mg/dL (0.6-1.0) Estimated GFR (Cockcroft-Gault) 63.8 78.8 BUN/Creatinine Ratio 9 (6-20) 10 (6-20) Glucose Level 81 mg/dL (70-99) 91 mg/dL (70-99) Lactic Acid Level 1.8 mmol/L (0.4-2.0) Calcium Level 8.7 mg/dL (8.5-10.1) 7.6 mg/dL (8.5-10.1) Magnesium Level 1.9 mg/dL (1.8-2.4) Total Bilirubin 0.2 mg/dL (0.2-1.0) 0.2 mg/dL (0.2-1.0) Aspartate Amino Transf (AST/SGOT) 27 U/L (15-37) 38 U/L (15-37) Alanine Aminotransferase (ALT/SGPT) 33 U/L (14-59) 33 U/L (14-59) Alkaline Phosphatase 74 U/L (46-116) 61 U/L (46-116) Total Protein 7.5 g/dL (6.4-8.2) 6.2 g/dL (6.4-8.2) Albumin 3.5 g/dL (3.4-5.0) 2.9 g/dL (3.4-5.0) Albumin/Globulin Ratio 0.9 (1.0-1.7) 0.9 (1.0-1.7) Urine Opiates Screen Neg (NEG) Urine Methadone Screen Neg (NEG) Urine Barbiturates Neg (NEG) Urine Phencyclidine Screen Pos (NEG) Urine Amphetamine/Methamphetamine Pos (NEG) Urine Benzodiazepines Screen Neg (NEG) Urine Cocaine Screen Neg (NEG) Urine Cannabinoids Screen Pos (NEG) Ethyl Alcohol Level < 10 mg/dL (0-10) Urine Ethyl Alcohol Neg (NEG) Bedside Urine HCG, Qualitative Hcg negative (Negative) Vitamin B12 Level 337 pg/mL (247-911) Thyroid Stimulating Hormone (TSH) 1.838 uIU/mL (0.358-3.74) Laboratory Tests Test 11/15/19 17:58 11/15/19 19:56 11/16/19 03:40 White Blood Count 3.1 x10^3/uL (4.0-11.0) 3.4 x10^3/uL (4.0-11.0) Red Blood Count 4.80 x10^6/uL (3.50-5.40) 4.33 x10^6/uL (3.50-5.40) Hemoglobin 13.6 g/dL (12.0-15.5) 12.0 g/dL (12.0-15.5) Hematocrit 40.2 % (36.0-47.0) 36.3 % (36.0-47.0) Mean Corpuscular Volume 84 fL (79-100) 84 fL (79-100) Mean Corpuscular Hemoglobin 28 pg (25-35) 28 pg (25-35) Mean Corpuscular Hemoglobin Concent 34 g/dL (31-37) 33 g/dL (31-37) Red Cell Distribution Width 15.7 % (11.5-14.5) 15.8 % (11.5-14.5) Platelet Count 292 x10^3/uL (140-400) 257 x10^3/uL (140-400) Neutrophils (%) (Auto) 30 % (31-73) 19 % (31-73) Lymphocytes (%) (Auto) 54 % (24-48) 67 % (24-48) Monocytes (%) (Auto) 12 % (0-9) 11 % (0-9) Eosinophils (%) (Auto) 2 % (0-3) 2 % (0-3) Basophils (%) (Auto) 2 % (0-3) 1 % (0-3) Neutrophils # (Auto) 0.9 x10^3/uL (1.8-7.7) 0.7 x10^3/uL (1.8-7.7) Lymphocytes # (Auto) 1.7 x10^3/uL (1.0-4.8) 2.3 x10^3/uL (1.0-4.8) Monocytes # (Auto) 0.4 x10^3/uL (0.0-1.1) 0.4 x10^3/uL (0.0-1.1) Eosinophils # (Auto) 0.1 x10^3/uL (0.0-0.7) 0.1 x10^3/uL (0.0-0.7) Basophils # (Auto) 0.0 x10^3/uL (0.0-0.2) 0.0 x10^3/uL (0.0-0.2) Segmented Neutrophils % 35 % (35-66) Band Neutrophils % 1 % (0-9) Lymphocytes % 56 % (24-48) Atypical Lymphocytes % (Manual) 1 % (0-0) Monocytes % 5 % (0-10) Eosinophils % 2 % (0-5) Platelet Estimate Adequate (ADEQUATE) Hypochromasia Slight Anisocytosis Slight Prothrombin Time 12.7 SEC (11.7-14.0) Prothromb Time International Ratio 1.0 (0.8-1.1) Urine Collection Type Unknown Urine Color Red Urine Clarity Turbid Urine pH (<5.0-8.0) Urine Specific [place] 1.020 (1.000-1.030) Urine Protein mg/dL (NEG-TRACE) Urine Glucose (UA) mg/dL (NEG) Urine Ketones (Stick) mg/dL (NEG) Urine Blood (NEG) Urine Nitrite (NEG) Urine Bilirubin (NEG) Urine Urobilinogen Dipstick mg/dL (0.2 mg/dL) Urine Leukocyte Esterase (NEG) Urine RBC Tntc /HPF (0-2) Urine WBC 5-10 /HPF (0-4) Urine Squamous Epithelial Cells Many /LPF Urine Bacteria Moderate /HPF (0-FEW) Urine Mucus Mod /LPF Sodium Level 138 mmol/L (136-145) 137 mmol/L (136-145) Potassium Level 3.7 mmol/L (3.5-5.1) 3.8 mmol/L (3.5-5.1) Chloride Level 103 mmol/L (98-107) 105 mmol/L (98-107) Carbon Dioxide Level 24 mmol/L (21-32) 24 mmol/L (21-32) Anion Gap 11 (6-14) 8 (6-14) Blood Urea Nitrogen 11 mg/dL (7-20) 10 mg/dL (7-20) Creatinine 1.2 mg/dL (0.6-1.0) 1.0 mg/dL (0.6-1.0) Estimated GFR (Cockcroft-Gault) 63.8 78.8 BUN/Creatinine Ratio 9 (6-20) 10 (6-20) Glucose Level 81 mg/dL (70-99) 91 mg/dL (70-99) Lactic Acid Level 1.8 mmol/L (0.4-2.0) Calcium Level 8.7 mg/dL (8.5-10.1) 7.6 mg/dL (8.5-10.1) Magnesium Level 1.9 mg/dL (1.8-2.4) Total Bilirubin 0.2 mg/dL (0.2-1.0) 0.2 mg/dL (0.2-1.0) Aspartate Amino Transf (AST/SGOT) 27 U/L (15-37) 38 U/L (15-37) Alanine Aminotransferase (ALT/SGPT) 33 U/L (14-59) 33 U/L (14-59) Alkaline Phosphatase 74 U/L (46-116) 61 U/L (46-116) Total Protein 7.5 g/dL (6.4-8.2) 6.2 g/dL (6.4-8.2) Albumin 3.5 g/dL (3.4-5.0) 2.9 g/dL (3.4-5.0) Albumin/Globulin Ratio 0.9 (1.0-1.7) 0.9 (1.0-1.7) Urine Opiates Screen Neg (NEG) Urine Methadone Screen Neg (NEG) Urine Barbiturates Neg (NEG) Urine Phencyclidine Screen Pos (NEG) Urine Amphetamine/Methamphetamine Pos (NEG) Urine Benzodiazepines Screen Neg (NEG) Urine Cocaine Screen Neg (NEG) Urine Cannabinoids Screen Pos (NEG) Ethyl Alcohol Level < 10 mg/dL (0-10) Urine Ethyl Alcohol Neg (NEG) Bedside Urine HCG, Qualitative Hcg negative (Negative) Vitamin B12 Level 337 pg/mL (247-911) Thyroid Stimulating Hormone (TSH) 1.838 uIU/mL (0.358-3.74) Brief Hospital Course Ms. Kang is a 29 old female who presented with the above mentioned orthostasis as reported by ER physician. She also was found to have illegal substances in her UDP. She denied using methamphetamine prescribed nor illegal. She was reassess in [facility] dworthostiatics vitalsings were requested. She did not present orthostasis and she was found to be able to discharge home in light of her greats recovery and the fact that she did not want to engage in conversation with our consutant. She has been appropriate from discharge given the benign nature of her work-up. I have advised her to take Dramamine if she would find herself being lightheaded. Imaging studies were reviewed with the patient and reassurance was provided. No other medication were voiced by the patient. Illegal drug abuse counseling has been done prior to discharge, review of system is positive as per HPI otherwise 14 point review of systems negative Physical exam Lungs clear to auscultation bilaterally with good inspiratory effort and CVS S1-S2 irregular rhythm no murmurs Discharge Information Condition at Discharge: Improved Follow Up: Weeks Disposition/Orders: D/C to Home Justicifation of Admission Dx: Justifications for Admission: Justification of Admission Dx: No PACHECO PALACIOS MD Nov 16, 2019 14:20
[2019-11-16 15:07] VITALS: BP 122/74
--- NOTE | 2019-11-16 16:47 | NUR ---
Discharge Note: JEFRY GORDON Discharge instructions and discharge home medications reviewed with Patient and a copy given. All questions have been answered and understanding verbalized. The following instructions and handouts were given: Seizures, Orthostatic hypotension, Alcohol and drug addiction Discontinued lines and drains: IV catheter removed intact. Patient discharged to Home with self care via wheelchair
== END 2019-11-16 16:56 | disposition home or self-care (01) ==
LOC: ER 17:04 → INTOOBSV 20:15 → 6 SOUTH 20:15
PROVIDERS: ADMIT Internal Medicine; ATTEND Internal Medicine
DX: R56.9 Unspecified convulsions (principal); I95.1 Orthostatic hypotension; R25.1 Tremor, unspecified; I10 Essential (primary) hypertension; F17.210 Nicotine dependence, cigarettes, uncomplicated; F12.90 Cannabis use, unspecified, uncomplicated; F43.10 Post-traumatic stress disorder, unspecified; J45.909 Unspecified asthma, uncomplicated
CPT/HCPCS: 36415; 70450; 80053; 80307; 81001; 81025; 82607; 83605; 83735; 84443; 85007; 85025; 85610; 87086; 93005; 94618; 96361; 96365; 99284; G0378; G0379; G0480; J3411; J3490; J7030